=== PATIENT | female | born 1985 | race Caucasian/White ===

== ENCOUNTER 2016-05-17 17:15 | Emergency (ER) | payer OTHER ==
[2016-05-17 17:23] VITALS: BP 106/76; PULSE 94; TEMP 97.9; BMI 32.2
[2016-05-17 18:59] LABS: URINE APPEARANCE CLOUDY; URINE BILIRUBIN NEGATIVE (NEGATIVE); URINE COLOR YELLOW; URINE GLUCOSE (UA) NEGATIVE (NEGATIVE); URINE KETONE NEGATIVE (NEGATIVE); URINE NITRITE NEGATIVE (NEGATIVE); URINE PROTEIN NEGATIVE (NEGATIVE); URINE UROBILINOGEN NEGATIVE E.U./dl (0.2-1.0)
[2016-05-17 19:02] LABS: URINE BLOOD 1+ (NEGATIVE); URINE LEUK ESTERASE 3+ (NEGATIVE)
[2016-05-17 19:03] LABS: URINE BACTERIA RARE /hpf (NONE SEEN); URINE MUCUS MODERATE; URINE RBC 4 /hpf (0-3); URINE WBC 32 /hpf (3-5)
--- NOTE | 2016-05-17 19:26 | PDOC ---
History of Present Illness - General Chief Complaint: Shortness of Breath Stated Complaint: 16 WEEKS DIFFICULTY BREATHING Time Seen by Provider: 05/17/16 18:24 History Source: Patient Exam Limitations: No Limitations - History of Present Illness Initial Comments: 05/17/16 20:26 30yo Female patient presents to ED c/o intermittent trouble breathing which began 2 weeks ago, but suddenly became worse on Saturday. Patient states she saw her DISH CARRIER, who instructed her to go to ER if symptoms worsen. Patient reports she is 16 weeks . G6 Para5. Patient denies n/v/d, fever, cough, congestion, abd pain, back pain, vaginal bleeding or any other complaints at this time. Timing/Duration: reports: constant, getting worse, intermittent, week Severity: reports: mild Possible Cause: Yes: no prior episodes Modifying Factors: worse with: activity, albuterol inhaler, albuterol nebulizer , antibiotics, coughing, lying down, oxygen, rest, other Associated Symptoms: denies: denies symptoms, chest pain/soreness, cough, dizziness, earache, facial pain, fever/chills, headache, lightheadedness, muscle aches, nasal congestion, nasal drainage, shortness of breath, sinus infection, sore throat, wheezing, other Past History - Travel Traveled outside of the country in the last 30 days: No Close contact w/someone who was outside of country & ill: No - Past Medical History Allergies/Adverse Reactions: Allergies Allergy/AdvReac Type Severity Reaction Status Date / Time No Known Drug Allergies Allergy Verified 05/17/16 17:19 mayonaise Allergy Intermediate Swelling Uncoded 05/17/16 17:19 seafood Allergy Intermediate Swelling Uncoded 05/17/16 17:19 Home Medications: Ambulatory Orders Vitamins (Sjr) - 1 tab PO DAILY #0 tablet 09/28/14 Cephalexin Monohydrate [Keflex -] 500 mg PO BID #14 capsule 05/17/16 Asthma: No Cancer: No Cardiac Disorders: No Diabetes: No HTN: No Seizures: No Thyroid Disease: No Other medical history: DENIES - Immunization History Immunization Up to Date: Yes - Psycho/Social/Smoking Cessation Hx Anxiety: No Suicidal Ideation: No Smoking History: Never smoked Have you smoked in the past 12 months: No Hx Alcohol Use: No Drug/Substance Use Hx: No Substance Use Type: None Hx Substance Use Treatment: No Respiratory Specific PMHX - Complaint Specific PMHX Angina: No Bronchitis: No Pneumonia: No Pulmonary Embolus: No TB (Tuberculosis): No Review of Systems - Review of Systems Respiratory: Yes: SOB with Exertion, SOB at Rest. No: Cough, Wheezing, Productive cough, Hemoptysis Cardiac (ROS): No: Chest Pain ABD/GI: Yes: Abdominal Distended, Other (16 weeks .). No: Constipated, Diarrhea, Nausea, Vomiting All Other Systems: Reviewed and Negative *Physical Exam - Vital Signs Last Vital Signs Temp Pulse Resp BP Pulse Ox 97.9 F 94 H 18 106/76 98 05/17/16 17:17 05/17/16 17:17 05/17/16 17:17 05/17/16 17:17 05/17/16 17:17 - Physical Exam General Appearance: Yes: Nourished, Appropriately Dressed HEENT: positive: EOMI, MICHAEL, Normal ENT Inspection, Normal Voice, Symmetrical, TMs Normal, Pharynx Normal Neck: positive: Trachea midline, Supple Respiratory/Chest: positive: Lungs Clear, Normal Breath Sounds, Labored Respiration Cardiovascular: positive: Regular Rhythm, Regular Rate Gastrointestinal/Abdominal: positive: Normal Bowel Sounds, Soft, Distended, Other (16 weeks ) Musculoskeletal: positive: Normal Inspection. negative: CVA Tenderness Extremity: positive: Normal Capillary Refill, Normal Inspection, Normal Range of Motion Integumentary: positive: Normal Color, Dry, Warm Neurologic: positive: frequency checker II-XII NML intact, Fully Oriented, Alert, Normal Mood/ Affect, Normal Response ED Treatment Course - LABORATORY CBC & Chemistry Diagram: 05/17/16 13:49 05/17/16 13:49 - ADDITIONAL ORDERS Additional order review: Laboratory Results 05/17/16 18:49 Urine Color Yellow Urine Appearance Cloudy Urine pH 5.0 Ur Specific [place] 1.028 Urine Protein Negative Urine Glucose (UA) Negative Urine Ketones Negative Urine Blood 1+ H Urine Nitrite Negative Urine Bilirubin Negative Urine Urobilinogen Negative Ur Leukocyte Esterase 3+ H D Urine RBC 4 Urine WBC 32 Ur Epithelial Cells Moderate Urine Bacteria Rare Urine Mucus Moderate Progress Note - Progress Note Progress Note: PATIENT APPEARS MORE RELAXED. PATIENT STATES SHE FEELS MUCH BETTER. LABS: WBC 10.6, PRO 1. URINE +UTI. WILL TREAT UTI AND ENCOURAGE FLUID AND SOLID INTAKE. *DC/Admit/Observation/Transfer Diagnosis at time of Disposition: Dehydration UTI (urinary tract infection) Qualifiers: Urinary tract infection type: site unspecified Hematuria presence: without hematuria Qualified Code(s): N39.0 - Urinary tract infection, site not specified - Discharge Dispostion Disposition: HOME Condition at time of disposition: Good Admit: No - Prescriptions Prescriptions: Cephalexin Monohydrate [Keflex -] 500 mg PO BID #14 capsule - Patient Instructions Printed Discharge Instructions: DI for Urinary Tract Infection (UTI) Additional Instructions: FOLLOW UP WITH YOUR DISH CARRIER. CALL TO SCHEDULE APPOINTMENT. INCREASE FLUID AND SOLID INTAKE. TAKE MEDICATIONS PRESCRIBED. RETURN IF SYMPTOMS WORSEN, OR ANY CONCERNS FOR FURTHER EVALUATION. Print Language: AMERICAN
--- NOTE | 2016-05-17 19:33 | PDOC ---
[id number] 98 05/17/16 17:17 05/17/16 17:17 05/17/16 17:17 05/17/16 17:17 05/17/16 17:17 ED Treatment Course - LABORATORY CBC & Chemistry Diagram: 05/17/16 13:49 05/17/16 13:49 - ADDITIONAL ORDERS Additional order review: Laboratory Results 05/17/16 18:49 Urine Color Yellow Urine Appearance Cloudy Urine pH 5.0 Ur Specific [place] 1.028 Urine Protein Negative Urine Glucose (UA) Negative Urine Ketones Negative Urine Blood 1+ H Urine Nitrite Negative Urine Bilirubin Negative Urine Urobilinogen Negative Ur Leukocyte Esterase 3+ H D Urine RBC 4 Urine WBC 32 Ur Epithelial Cells Moderate Urine Bacteria Rare Urine Mucus Moderate Medical Decision Making - Medical Decision Making 05/17/16 19:33 agree with care from [facility] *DC/Admit/Observation/Transfer Diagnosis at time of Disposition: UTI (urinary tract infection), Dehydration - Discharge Dispostion Disposition: HOME - Prescriptions Prescriptions: Cephalexin Monohydrate [Keflex -] 500 mg PO BID #14 capsule - Patient Instructions Printed Discharge Instructions: DI for Urinary Tract Infection (UTI) Additional Instructions: FOLLOW UP WITH YOUR [facility] [facility]. CALL TO SCHEDULE APPOINTMENT. INCREASE FLUID AND SOLID INTAKE. TAKE MEDICATIONS PRESCRIBED. RETURN IF SYMPTOMS WORSEN, OR ANY CONCERNS FOR FURTHER EVALUATION. Print Language: [place]OHAW[place]
[2016-05-17 20:24] LABS: BASOPHIL 0.8 % (0-2.0); EOSINOPHIL 2.4 % (0-4.5); MCH 26.5 pg (25.7-33.7); MCHC 31.6 g/dl (32.0-36.0); MEAN CELL VOLUME 83.8 fl (80-96); MEAN PLT VOLUME 9.2 fl (7.5-11.1); NEUTROPHILS 62.1 % (42.8-82.8); PLATELET COUNT 317 K/MM3 (134-434); RDW 13.8 % (11.6-15.6); WHITE BLOOD COUNT 10.6 K/mm3 (4.0-10.0)
[2016-05-17 20:43] LABS: ALBUMIN 3.3 g/dl (3.4-5.0); ANION GAP 9 (8-16); BILIRUBIN,TOTAL 0.1 mg/dL (0.2-1.0); CALCIUM 8.6 mg/dL (8.5-10.1); CO2 22 mmol/L (21-32); CREATININE 0.6 mg/dL (0.55-1.02); GLUCOSE,RANDOM 91 mg/dL (74-106); SGPT/ALT 17 U/L (12-78); TOT PROT 7.4 g/dl (6.4-8.2)
[2016-05-17 20:44] LABS: ALK PHOS 62 U/L (45-117); SGOT/AST 15 U/L (15-37)
[2016-05-17] MEDS ORDERED: CEPHALEXIN MONOHYDRATE 500 MG CAPSULE (UD) PO ONE (21:14)
[2016-05-17] MEDS ORDERED: CEPHALEXIN MONOHYDRATE 250 MG CAPSULE (FP) ONE (21:31)
--- NOTE | 2016-05-19 10:26 | EKG ---
Test Reason : Blood Pressure : / mmHG Vent. Rate : 089 BPM Atrial Rate : 089 BPM P-R Int : 156 ms QRS Dur : 072 ms QT Int : 358 ms P-R-T Axes : 054 008 027 degrees QTc Int : 435 ms NORMAL SINUS RHYTHM NORMAL ECG NO PREVIOUS ECGS AVAILABLE Confirmed by JILLIAN CARDOZO MD ([id number]) on 05/19/2016 10:26:00 AM Referred By: Confirmed By:JILLIAN CARDOZO MD
== END 2016-05-17 21:41 | disposition home or self-care (01) ==
LOC: JER 17:15
DX: O23.32 Infections of other parts of urinary tract in pregnancy, second trimester (principal); E86.0 Dehydration; Z3A.16 16 weeks gestation of pregnancy
CPT/HCPCS: 36415; 80053; 81003; 81015; 85025; 85379; 93005; 93010; 99281-25

== ENCOUNTER 2016-11-03 08:00 | Inpatient (IN) | payer OTHER ==
[2016-11-03 08:49] VITALS: BMI 34.3
[2016-11-03] MEDS ORDERED: AMPICILLIN - 2 GM in SODIUM CHLORIDE 100 ML IVPB ONE (09:06)
--- NOTE | 2016-11-03 09:10 | HP ---
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: Alzheimer's, CVA, Dementia, Migraine, Multiple Sclerosis, Peripheral Neuropathy, Parkinson's, Seizure, Syncope, TIA, Vertigo, Other Cardiovascular: No: AFIB, Aneurysm, Aortic Insufficiency, Aortic Stenosis, CAD, CHF, Deep Vein Thrombosis, HTN, Hyperlipdemia, AL, Mitral Insufficiency, Mitral Stenosis, Murmur, Pulmonary Hypertension, Other Pulmonary: No: Asthma, Bronchitis, Cancer, COPD, O2 Dependent, Pneumonia, Previously Intubated, Pulmonary Embolus, Pulmonary Fibrosis, Sleep Apnea, Other Hepatobiliary: No: Cirrhosis, Cholelithiasis, Cholecystitis, Choledocholithiasis , Hepatitis A, Hepatitis B, Hepatitis C, Other Renal/: No: Renal Failure, Renal Inusuff, BPH, Cancer, Hematuria, Hemodialysis , Neurogenic Bladder, Renal Calculi, UTI, Other Reproductive: No: Ectopic , Endometriosis, Fibroids, PID, Polycystic Ovary Syndrome, Postmenopausal, Other ...: 8 ...Para: 5 Heme/Onc: No: Anemia, B12 Deficiency, Bleeding Disorder, Cancer, Current Chemotherapy, Current Radiation Therapy, Hemochromatosis, Hypercoaguable State, Myeloproliferative Synd, Sickle Cell Disease, Sickle Cell Trait, Thrombocytopenia, Other Infectious Disease: No: AIDS, C-Diff, Herpes Zoster, HIV, MRSA, STD's, Tuberculosis, VREF, Other Psych: No: Addictions, Anxiety, Bipolar, Depression, Panic, Psychosis, Schizophrenia, Other Musculoskeletal: No: Bursitis, Chronic low back pain, Hemiparesis, Hemiplegia, Osteoarthritis, Paraplegia, Other ENT: No: Allergic Rhinitis, Sinusitis, Other Endocrine: No: Jose Rafael's Disease, Tequila's Disease, Diabetes Insipidus, Diabetes Mellitus, Hyperparathyroidism, Hyperthyroidism, Hypothyroidism, Osteopenia, SIADH, Other Dermatology: No: Basal Cell, Cellulitis, Eczema, Melanoma, Psoriasis, Squamous Cell, Other - Smoking History Smoking history: Never smoked Have you smoked in the past 12 months: No - Alcohol/Substance Use Hx Alcohol Use: No History of Substance Use: reports: None - Social History History of Recent Travel: No Home Medications - Allergies Allergies/Adverse Reactions: Allergies Allergy/AdvReac Type Severity Reaction Status Date / Time No Known Drug Allergies Allergy Verified 09/30/16 03:49 mayonaise Allergy Intermediate Swelling Uncoded 09/30/16 03:49 seafood Allergy Intermediate Swelling Uncoded 09/30/16 03:49 - Home Medications Home Medications: Ambulatory Orders Vitamins (Sjr) - 1 tab PO DAILY #0 tablet 09/28/14 Iron 1 tab PO DAILY 11/02/16 Review of Systems - Review of Systems Constitutional: reports: No Symptoms Eyes: reports: No Symptoms HENT: reports: No Symptoms Neck: reports: No Symptoms Cardiovascular: reports: No Symptoms Respiratory: reports: No Symptoms Gastrointestinal: reports: No Symptoms, Dysphagia Genitourinary: reports: No Symptoms Musculoskeletal: reports: No Symptoms Integumentary: reports: No Symptoms Neurological: reports: No Symptoms Physical Examination Vital Signs: Vital Signs Temperature 98.2 F 11/03/16 08:39 Pulse Rate 84 11/03/16 08:39 Respiratory Rate 18 11/03/16 08:39 Blood Pressure 114/75 11/03/16 08:39 O2 Sat by Pulse Oximetry (%) Assessment/Plan as above admit labs gbs proph
[2016-11-03] MEDS ORDERED: ELECTROLYTE-148 SOLN 1,000 ML IV SCH (09:15)
[2016-11-03] MEDS ORDERED: OXYTOCIN 15 UNITS/ LR 250 ML 250 ML IVPB SCH (09:15)
--- NOTE | 2016-11-03 09:27 | PN ---
Ante-Partal Exam - Subjective Vital Signs: Vital Signs Temperature 98.1 F 11/03/16 09:00 Pulse Rate 81 11/03/16 09:00 Respiratory Rate 18 11/03/16 09:00 Blood Pressure 117/83 11/03/16 09:00 O2 Sat by Pulse Oximetry (%) - Contractions Contractions: Yes Regularity: Regular Intensity: Moderate Monitor Mode: External - Exam during Labor Heart Rate: 150 Category: I Monitor Accelerations: Present Monitor Decelerations: None Exam: Vaginal Dilatation (cm): 4 Effacement (%): 50 Amniotic Membrane Status: Ruptured Nitrazine Test: Positive Amniotic Fluid: Clear Presentation: Vertex Station: -2 - Assessment/Plan Assessment/Plan: continue care expect
[2016-11-03] MEDS ORDERED: BUTORPHANOL TARTRATE 1 MG/ML VIAL IVPUSH PRN (10:56)
[2016-11-03] MEDS ORDERED: PROMETHAZINE HCL 25 MG/1 ML VIAL IVPUSH PRN (10:57)
[2016-11-03 11:00] LABS: BASOPHIL 0.4 % (0-2.0); EOSINOPHIL 2.1 % (0-4.5); MCH 26.1 pg (25.7-33.7); MCHC 31.9 g/dl (32.0-36.0); MEAN PLT VOLUME 9.3 fl (7.5-11.1); NEUTROPHILS 60.3 % (42.8-82.8); PLATELET COUNT 254 K/MM3 (134-434); RDW 15.4 % (11.6-15.6); WHITE BLOOD COUNT 8.5 K/mm3 (4.0-10.0)
[2016-11-03 11:18] LABS: INR 0.94 (0.82-1.09); PROTHROMBIN TIME (PATIENT) 10.3 SEC (9.98-11.88)
[2016-11-03 11:21] LABS: ACTIVATED PTT 28.7 SECONDS (26.9-34.4)
[2016-11-03 11:36] LABS: ANION GAP 12 (8-16); CALCIUM 8.3 mg/dL (8.5-10.1); CO2 21 mmol/L (21-32); CREATININE 0.6 mg/dL (0.55-1.02); GLUCOSE,RANDOM 82 mg/dL (74-106)
--- NOTE | 2016-11-03 12:03 | PN ---
Ante-Partal Exam - Subjective Vital Signs: Vital Signs Temperature 98.3 F 11/03/16 11:00 Pulse Rate 74 11/03/16 11:00 Respiratory Rate 18 11/03/16 11:00 Blood Pressure 98/59 11/03/16 11:00 O2 Sat by Pulse Oximetry (%) - Contractions Contractions: Yes Regularity: Regular Intensity: Mild Monitor Mode: External - Exam during Labor Heart Rate: 150 Variability: Moderate Category: I Monitor Decelerations: None Exam: Vaginal Dilatation (cm): 4-5 Effacement (%): 50 Amniotic Membrane Status: Ruptured Nitrazine Test: Positive Presentation: Vertex Station: -2 - Assessment/Plan Assessment/Plan: as above contine care expect
[2016-11-03] MEDS ORDERED: AMPICILLIN - 1 GM in SODIUM CHLORIDE 100 ML IVPB SCH (12:15)
[2016-11-03] MEDS: AMPICILLIN - 100 ML IVPB SCH ×2 (13:00→19:17)
--- NOTE | 2016-11-03 13:42 | PN ---
Ante-Partal Exam - Subjective Vital Signs: Vital Signs Temperature 98.6 F 11/03/16 13:00 Pulse Rate 65 11/03/16 13:00 Respiratory Rate 20 11/03/16 13:00 Blood Pressure 83/54 11/03/16 13:00 O2 Sat by Pulse Oximetry (%) - Exam during Labor Heart Rate: 150 Variability: Moderate Heart Rate Location: Midline Category: I Monitor Accelerations: Present Monitor Decelerations: Variable Exam: Vaginal Dilatation (cm): 5 Effacement (%): 50 Amniotic Membrane Status: Ruptured Nitrazine Test: Positive Amniotic Fluid: Clear Meconium Staining: Light - Assessment/Plan Assessment/Plan: as above contine pitocin expect
[2016-11-03] MEDS ORDERED: METHYLERGONOVINE MALEATE 0.2 MG/1 ML AMP IM PRN (15:22)
[2016-11-03] MEDS ORDERED: BISACODYL 10 MG SUPP.RECT RC PRN (15:22)
[2016-11-03] MEDS ORDERED: WITCH HAZEL 50% (TUCKS) 40 PAD/JAR PAD TP PRN (15:22)
[2016-11-03] MEDS ORDERED: BENZOCAINE 20% 57 GM BOTTLE TP PRN (15:22)
[2016-11-03] MEDS ORDERED: BENZOCAINE 28 GM HEMORRHOIDAL OINTMENT TP PRN (15:22)
--- NOTE | 2016-11-03 15:25 | PN ---
Delivery - Delivery Type of Anesthesia: Local Episiotomy/Laceration: None EBL (cc): 300 Delivery, Single - Feeding Plan Initial Plan: Elected not to breastfeed exclusively throughout hospitalization
[2016-11-03] MEDS ORDERED: OXYTOCIN 20 UNITS in 0.9% NS 1,000 ML IV SCH (15:30)
[2016-11-03] MEDS: IBUPROFEN 600 MG TABLET (FP) PO PRN ×2 (17:47→22:24)
[2016-11-03] MEDS: ACETAMINOPHEN 325 MG TABLET (FP) PO PRN ×2 (17:48→22:21)
[2016-11-03] MEDS: oxyCODONE HCL 5 MG TABLET PO PRN (21:16)
[2016-11-04] MEDS: ACETAMINOPHEN 325 MG TABLET (FP) PO PRN ×3 (04:29→20:22)
[2016-11-04] MEDS: oxyCODONE HCL 5 MG TABLET PO PRN ×4 (04:30→20:22)
[2016-11-04] MEDS: IBUPROFEN 600 MG TABLET (FP) PO PRN (08:09)
[2016-11-04 08:19] LABS: BASOPHIL 0.4 % (0-2.0); EOSINOPHIL 1.2 % (0-4.5); MCH 25.8 pg (25.7-33.7); MCHC 31.2 g/dl (32.0-36.0); MEAN CELL VOLUME 82.6 fl (80-96); MEAN PLT VOLUME 9.2 fl (7.5-11.1); NEUTROPHILS 57.6 % (42.8-82.8); PLATELET COUNT 201 K/MM3 (134-434); RDW 15.6 % (11.6-15.6); WHITE BLOOD COUNT 11.2 K/mm3 (4.0-10.0)
[2016-11-04] MEDS ORDERED: DIPHTH,PERTUSS(ACELL),TET 0.5 ML DISP.SYRIN IM ONE (17:00)
[2016-11-04] MEDS ORDERED: SENNOSIDES/DOCUSATE COMBO (SENNA PLUS) TABLET (UD) PO PRN (22:00)
--- NOTE | 2016-11-04 22:52 | PN ---
Post Progress Note Post Day: 1 Type of Delivery: Vital Signs: Vital Signs Temperature 98.1 F 11/04/16 21:24 Pulse Rate 74 11/04/16 21:24 Respiratory Rate 18 11/04/16 21:24 Blood Pressure 105/72 11/04/16 21:24 O2 Sat by Pulse Oximetry (%) Breast Exam: Yes: Soft Uterus: Yes: Fundus Firm Abdomen/GI: Yes: Abdomen soft Lochia: Yes: Rubra Lochia, amount: Small Extremities: Yes: Calves non-tender Perineum: Yes: Intact Activity: Ambulating - Labs Labs: CBC WBC 11.2 K/mm3 (4.0-10.0) H D 11/04/16 07:50 RBC 3.56 M/mm3 (3.60-5.2) L 11/04/16 07:50 Hgb 9.2 GM/dL (10.7-15.3) L D 11/04/16 07:50 Hct 29.4 % (32.4-45.2) L 11/04/16 07:50 MCV 82.6 fl (80-96) 11/04/16 07:50 MCHC 31.2 g/dl (32.0-36.0) L 11/04/16 07:50 RDW 15.6 % (11.6-15.6) 11/04/16 07:50 Plt Count 201 K/MM3 (134-434) D 11/04/16 07:50 MPV 9.2 fl (7.5-11.1) 11/04/16 07:50 Neutrophils % 57.6 % (42.8-82.8) 11/04/16 07:50 Lymphocytes % 36.0 % (8-40) 11/04/16 07:50 Monocytes % 4.8 % (3.8-10.2) 11/04/16 07:50 Eosinophils % 1.2 % (0-4.5) 11/04/16 07:50 Basophils % 0.4 % (0-2.0) 11/04/16 07:50 Assessment/Plan as above oob reg diet continue care
[2016-11-05] MEDS: oxyCODONE HCL 5 MG TABLET PO PRN ×2 (03:06→10:26)
[2016-11-05] MEDS: ACETAMINOPHEN 325 MG TABLET (FP) PO PRN ×2 (03:06→10:25)
[2016-11-05 10:37] VITALS: BP 116/67; PULSE 86; TEMP 98.6
== END 2016-11-05 12:30 | disposition home or self-care (01) | DRG 560 ==
LOC: JLDR 08:00 → J3W 17:05
PROVIDERS: ADMIT Obstetrics & Gynecology; ATTEND Obstetrics & Gynecology
PROC: 10E0XZZ Delivery of Products of Conception, External Approach (ICD-10-PCS; principal; 2016-11-03)
DX: O80 Encounter for full-term uncomplicated delivery (principal); Z3A.40 40 weeks gestation of pregnancy; Z37.0 Single live birth; Z22.330 Carrier of Group B streptococcus
CPT/HCPCS: 36415; 59409; 80048; 85025; 85610; 85730; 86593; 86850; 86900; 86901; 90715

== ENCOUNTER 2018-09-24 14:32 | Observation (INO) | payer OTHER | END 2018-09-25 21:10 | disposition home or self-care (01) | LOC: JER 14:32 → JERBED 21:32 → J5S 22:59 ==

== ENCOUNTER 2018-11-11 05:32 | Inpatient (IN) | payer SELFPAY ==
[2018-11-11] MEDS ORDERED: ALBUTEROL SO4 2.5/IPRATROPIUM 0.5 INH SOL 3 ML VIAL.NEB. NEB ONE ×2 (06:12→06:19)
[2018-11-11 06:30] LABS: HEMATOCRIT 36.6 % (32.4-45.2); HEMOGLOBIN 11.9 GM/dL (10.7-15.3); MCH 27.7 pg (25.7-33.7); MCHC 32.4 g/dl (32.0-36.0); MEAN CELL VOLUME 85.5 fl (80-96); MEAN PLT VOLUME 9.3 fl (7.5-11.1); PLATELET COUNT 315 K/MM3 (134-434); RBC 4.29 M/mm3 (3.60-5.2); RDW 13.9 % (11.6-15.6); WHITE BLOOD COUNT 9.5 K/mm3 (4.0-10.0)
[2018-11-11] MEDS ORDERED: methylPREDNISolone NA SUCC 125 MG/2 ML VIAL IVPUSH ONE (06:34)
--- NOTE | 2018-11-11 06:34 | PDOC ---
History of Present Illness - General Chief Complaint: Shortness of Breath Stated Complaint: S.O.B. 28 WEEKS Time Seen by Provider: 11/11/18 06:31 History Source: Patient Exam Limitations: No Limitations - History of Present Illness Initial Comments: 11/11/18 06:31 32F at 6 months who presents to the ER with shortness of breath. The patient states that she developed shortness of breath yesterday and this continued throughout the night until her presentation. She admits to coughing so hard that she had vomited and admits to reproducible L chest pain. She denies other CP, fever, chills, nausea, palpitations, lightheadedness, and hx of asthma. Past History - Past Medical History Allergies/Adverse Reactions: Allergies Allergy/AdvReac Type Severity Reaction Status Date / Time No Known Drug Allergies Allergy Verified 11/11/18 05:46 mayonaise Allergy Intermediate Swelling Uncoded 11/11/18 05:46 seafood Allergy Intermediate Swelling Uncoded 11/11/18 05:46 Home Medications: Ambulatory Orders Ferrous Sulfate [Iron] 325 mg PO DAILY 09/24/18 Asthma: No Cancer: No Cardiac Disorders: No COPD: No Diabetes: No HTN: No Seizures: No Thyroid Disease: No - Immunization History Immunization Up to Date: Yes - Suicide/Smoking/Psychosocial Hx Smoking History: Never smoked Have you smoked in the past 12 months: No Hx Alcohol Use: No Drug/Substance Use Hx: No Substance Use Type: None Hx Substance Use Treatment: No Review of Systems - Review of Systems Able to Perform ROS?: Yes Comments:: 11/11/18 06:35 GENERAL/CONSTITUTIONAL: No fever or chills. No weakness. HEAD, EYES, EARS, NOSE AND THROAT: No change in vision. No ear pain or discharge. No sore throat. CARDIOVASCULAR: No active chest pain, palpitations, or lightheadedness. RESPIRATORY: + for SOB and cough. No wheezing or hemoptysis. GASTROINTESTINAL: No abdominal pain, nausea, diarrhea, or constipation. GENITOURINARY: No dysuria, frequency, hematuria, or change in urination. MUSCULOSKELETAL: No joint or muscle swelling or pain. No neck or back pain. SKIN: No rash or lesions. NEUROLOGIC: No headache, numbness, tingling, focal weakness, loss of consciousness, or change in strength/sensation. Is the patient limited Polish proficient: No *Physical Exam - Vital Signs Last Vital Signs Temp Pulse Resp BP Pulse Ox 98.3 F 103 H 18 112/57 L 99 11/11/18 05:40 11/11/18 05:40 11/11/18 05:40 11/11/18 05:40 11/11/18 05:40 - Physical Exam Comments: 11/11/18 06:36 GENERAL: Well developed, well nourished. Awake and alert. No acute distress. HEENT: Normocephalic, atraumatic. Hearing grossly normal. Moist mucous membranes. PERRLA, EOMI. No conjunctival pallor. Sclera are non-icteric. NECK: Supple. Full ROM. No JVD. CARDIOVASCULAR: Regular rate and rhythm. No murmurs, rubs, or gallops. PULMONARY: Decreased aeration in b/l lungs; pt speaking in full sentences. ABDOMINAL: Soft. Non-tender. Non-distended. No rebound or guarding. GENITOURINARY: No CVA tenderness bilaterally. MUSCULOSKELETAL: Normal range of motion at all joints. No bony deformities or tenderness. EXTREMITIES: No cyanosis. No clubbing. No edema. No calf tenderness or swelling. SKIN: Warm and dry. Normal capillary refill. No rashes. No jaundice. NEUROLOGICAL: Alert, awake, appropriate. Cranial nerves 2-12 grossly intact. Normal speech. Gait is normal without ataxia. PSYCHIATRIC: Cooperative. Good eye contact. Appropriate mood and affect. ED Treatment Course - LABORATORY CBC & Chemistry Diagram: 11/11/18 06:20 11/11/18 06:20 - Medications Given in the ED: ED Medications Discontinued Medications Generic Name Dose Route Start Last Admin Trade Name Freq PRN Reason Stop Dose Admin Albuterol/Ipratropium 2 amp 11/11/18 06:19 11/11/18 06:20 Duoneb - NEB 11/11/18 06:20 2 amp ONCE ONE Administration Medical Decision Making - Medical Decision Making 11/11/18 06:37 32F at 6 months presents with shortness of breath. Pt mentioned after history that she had not felt the baby move in 2 days. L&D notified and came to bedside confirming FHT. Due to decreased aeration, will give 2 duonebs and steroids and reassess. PE on ddx but less likely as pt has PE findings of decreased aeration and mild wheezing. Pending labs and imaging. 11/11/18 06:59 Pt signed out to Dr. Savage for further evaluation. *DC/Admit/Observation/Transfer - Referrals Referrals: Yoly Dixon MD [Primary Care Provider] - - Patient Instructions - Post Discharge Activity
[2018-11-11] MEDS ORDERED: methylPREDNISolone NA SUCC 125 MG/2 ML VIAL ONE (06:35)
--- NOTE | 2018-11-11 06:37 | PDOC ---
Attending Attestation - Resident Resident Name: GeorgeeverosendoDamion - ED Attending Attestation I have performed the following: I have examined & evaluated the patient, The case was reviewed & discussed with the resident, I agree w/resident's findings & plan - HPI HPI: 11/11/18 06:33 32-year-old shortness of breath and wheezing. Pt denies cp or fever - Physicial Exam PE: 11/11/18 06:34 GENERAL: Awake, in no acute distress HEAD: No signs of trauma EYES: ENT:clear without exudates. Moist mucosa NECK: Normal ROM, LUNGS:. b/l exp wheezing , dim air entry b/l HEART: Regular rate and rhythm, ABDOMEN: Soft, nondistended CHEST WALL: BACK: No midline tenderness. EXTREMITIES:. No erythema, or tenderness NEUROLOGICAL: Alert, SKIN: Warm, Dry - Medical Decision Making 11/11/18 06:35 32-year-old gravid female with shortness of breath and wheezing EKG, chest x-ray and labs have been ordered Final Medrol 125 mg as well as duo nebs 2 Call placed to labor and delivery on arrival is patient is 28 weeks and has not felt movement for 2 days, heart rate was confirmed at bedside If DC'd from the emergency department plan for a full labor and delivery evaluation
[2018-11-11 07:01] LABS: ALBUMIN 2.8 g/dl (3.4-5.0); ALK PHOS 65 U/L (45-117); ANION GAP 10 MMOL/L (8-16); BILIRUBIN,TOTAL 0.2 mg/dL (0.2-1); BLOOD UREA NITROGEN 6.8 mg/dL (7-18); CALCIUM 8.2 mg/dL (8.5-10.1); CHLORIDE 110 mmol/L (98-107); CO2 20 mmol/L (21-32); CREATININE 0.5 mg/dL (0.55-1.3); GLUCOSE,RANDOM 77 mg/dL (74-106); N-TERMINAL BNP 21.4 pg/ml (5-125); POTASSIUM 3.8 mmol/L (3.5-5.1); SGOT/AST 18 U/L (15-37); SGPT/ALT 26 U/L (13-61); SODIUM 140 mmol/L (136-145); TOT PROT 6.9 g/dl (6.4-8.2)
--- NOTE | 2018-11-11 07:29 | PDOC ---
*Physical Exam - Vital Signs Last Vital Signs Temp Pulse Resp BP Pulse Ox 98.3 F 103 H 18 112/57 L 99 11/11/18 05:40 11/11/18 05:40 11/11/18 05:40 11/11/18 05:40 11/11/18 05:40 - Physical Exam Comments: 11/11/18 07:27 General: awake, alert, SpO2 97% on 2L O2 NC Respiratory: B/L expiratory wheezing, diminished air entry B/L CV: S1, S2, Tachycardic, RRR Abdomen: gravid uterus - fundal height below subxiphoid ED Treatment Course - LABORATORY CBC & Chemistry Diagram: 11/11/18 06:20 11/11/18 06:20 - ADDITIONAL ORDERS Additional order review: Laboratory Results 11/11/18 06:20 Sodium 140 Potassium 3.8 Chloride 110 H Carbon Dioxide 20 L Anion Gap 10 BUN 6.8 L Creatinine 0.5 L Est GFR (CKD-EPI)AfAm 148.42 Est GFR (CKD-EPI)NonAf 128.06 Random Glucose 77 Calcium 8.2 L Total Bilirubin 0.2 AST 18 ALT 26 Alkaline Phosphatase 65 Creatine Kinase 47 Troponin I < 0.02 B-Natriuretic Peptide 21.4 Total Protein 6.9 Albumin 2.8 L 11/11/18 06:20 RBC 4.29 MCV 85.5 MCHC 32.4 RDW 13.9 MPV 9.3 - Medications Given in the ED: ED Medications Discontinued Medications Generic Name Dose Route Start Last Admin Trade Name Freq PRN Reason Stop Dose Admin Albuterol/Ipratropium 2 amp 11/11/18 06:19 11/11/18 06:20 Duoneb - NEB 11/11/18 06:20 2 amp ONCE ONE Administration Methylprednisolone Sodium Succinate 125 mg 11/11/18 06:34 11/11/18 06:41 Solu-Medrol - IVPUSH 11/11/18 06:35 125 mg ONCE ONE Administration Medical Decision Making - Medical Decision Making 11/11/18 07:45 Patient signed out at bedside @ [address] Jack (Resident) and Dr. Burton ( Attending) Reassessed @ bedside SpO2 98& on 2L NC, non-labored breathing Mildly tachycardic @ HR 104 Mild bibasilar wheezes Patient explained risks/benefits of CXR, consents to CXR 11/11/18 08:54 CXR shows no infiltrate - less likely PNA Patient remains SpO2 92% on RA, speaking full sentences, non-labored respirations, continues to c/o dyspnea 11/11/18 09:19 Patient consents to CTA 11/11/18 13:43 CTA negative for PE Case d/w Dr. Ceja (Resident) Hospitalist 11/11/18 18:35 @1755 Discussed case w/Dr. Barraza (OB-Statistician Applied) Patient does not require admission for OB-Statistician Applied Patient reassessed @ bedside. States she became short of breath and dizzy while ambulating to the bathroom. Repeat VS: SpO2 96% (on 3L), HR 100's - patient not safe for discharge home. Order placed for Telemetry Admission 11/11/18 19:38 Case d/w Dr. Fulton, will evaluate patient @ bedside. 11/11/18 19:58 Case d/w Dr. Fulton- accepts for admission. Requests order for Heart Monitoring. *DC/Admit/Observation/Transfer Diagnosis at time of Disposition: Shortness of breath - Discharge Dispostion Condition at time of disposition: Fair Decision to Admit order: Yes - Referrals - Patient Instructions - Post Discharge Activity
[2018-11-11] MEDS ORDERED: SODIUM CHLORIDE 0.9% 500 ML INFUS.BAG IV ONE (11:26)
--- NOTE | 2018-11-11 13:53 | EKG ---
Test Reason : Blood Pressure : / mmHG Vent. Rate : 089 BPM Atrial Rate : 089 BPM P-R Int : 154 ms QRS Dur : 072 ms QT Int : 364 ms P-R-T Axes : 067 006 018 degrees QTc Int : 442 ms NORMAL SINUS RHYTHM NORMAL ECG WHEN COMPARED WITH ECG OF 24-SEP-2018 15:24, NO SIGNIFICANT CHANGE WAS FOUND Confirmed by MD ADARSH, RADHA ([id number]) on 11/11/2018 1:52:39 PM Referred By: Confirmed By:RADHA ALTAMIRNAO MD
--- NOTE | 2018-11-11 14:45 | CONSULT ---
Consultation: REQUESTING PROVIDER: CONSULT REQUEST: We have been asked to medically evaluate this patient for hypoxia. HISTORY OF PRESENT ILLNESS: Patient is a 32 year old ([id number]), at 24 weeks AOG, with no significant past medical history, presented to the ED due to sudden onset shortness of breath that started upon waking up this morning. Patient reports cough, productive of white sputum in the last 2 weeks, but denies any fever, chills, rhinorrhea, sore throat, headache, SOB. No medications were taken. This morning, on waking up, patient experienced difficulty breathing and felt "out of breath", and decided to go to the ED. At the ED, patient was given solu-medrol and duonebs which provided mild relief. Patient continues to report SOB. CTA was done which showed no central pulmonary artery emboli, no infiltrates, no pneumothorax. EKG showed NSR with no ST-T wave abnormalities. Of note, patient's last 2 pregnancies ended in miscarriages, with the first being an ectopic and a 2nd trimester miscarriage. She also reported the same father for these last 3 pregnancies, but different father for her first 6 children. Allergies: NKDA PMHx: noncontributory PSHx: no previous surgeries FHx: Father -DM, Mother - HTN OB Hx: , last 2 pregnancies ended in miscarriages. SHx: Denies smoking, EtOH and illicit drug use REVIEW OF SYSTEMS: CONSTITUTIONAL: Absent: fever, chills, diaphoresis, generalized weakness, malaise, loss of appetite, weight change HEENT: Absent: rhinorrhea, nasal congestion, throat pain, throat swelling, difficulty swallowing, mouth swelling, ear pain, eye pain, visual changes CARDIOVASCULAR: Absent: chest pain, syncope, palpitations, irregular heart rate, lightheadedness , peripheral edema RESPIRATORY: cough, shortness of breath Absent:dyspnea with exertion, orthopnea, wheezing, stridor, hemoptysis GASTROINTESTINAL: Absent: abdominal pain, abdominal distension, nausea, vomiting, diarrhea, constipation, melena, hematochezia GENITOURINARY: Absent: dysuria, frequency, urgency, hesitancy, hematuria, flank pain, genital pain MUSCULOSKELETAL: Absent: myalgia, arthralgia, joint swelling, back pain, neck pain SKIN: Absent: rash, itching, pallor HEMATOLOGIC/IMMUNOLOGIC: Absent: easy bleeding, easy bruising, lymphadenopathy, frequent infections ENDOCRINE: Absent: unexplained weight gain, unexplained weight loss, heat intolerance, cold intolerance NEUROLOGIC: Absent: headache, focal weakness or paresthesias, dizziness, unsteady gait, seizure, mental status changes, bladder or bowel incontinence PSYCHIATRIC: Absent: anxiety, depression, suicidal or homicidal ideation, hallucinations. PHYSICAL EXAMINATION Vital Signs - 24 hr 11/11/18 11/11/18 11/11/18 05:40 09:08 09:09 Temperature 98.3 F Pulse Rate 103 H Pulse Rate [ 98 H Apical] Respiratory 18 22 H 22 H Rate Blood Pressure 112/57 L Blood Pressure 97/58 L [Right Arm] O2 Sat by Pulse 99 93 L 96 Oximetry (%) 11/11/18 11:57 Temperature Pulse Rate Pulse Rate [ 104 H Apical] Respiratory 28 H Rate Blood Pressure Blood Pressure 92/60 [Right Arm] O2 Sat by Pulse 99 Oximetry (%) GENERAL: Awake, alert, and fully oriented, maintains SpO2 >90% on room air HEAD: Normal with no signs of trauma. EYES: PERRLA, EOMI, sclera anicteric, conjunctiva clear. EARS, NOSE, THROAT: Ears normal, nares patent, oropharynx clear without exudates. Moist mucous membranes. NECK: Normal range of motion, supple. LUNGS: Breath sounds equal, clear to auscultation bilaterally. HEART: Regular rate and rhythm, normal S1 and S2 without murmur, rub or gallop. ABDOMEN: Soft, nontender, not distended, normoactive bowel sounds. MUSCULOSKELETAL: Normal range of motion at all joints. No bony deformities or tenderness. No CVA tenderness. UPPER EXTREMITIES: 2+ pulses, warm, well-perfused. No peripheral edema. LOWER EXTREMITIES: 2+ pulses, warm, well-perfused. No peripheral edema. NEUROLOGICAL: Cranial nerves II-XII intact. Normal speech. Normal gait. PSYCHIATRIC: Cooperative. Good eye contact. Appropriate mood and affect. SKIN: Warm, dry, normal turgor, no rashes or lesions noted. Laboratory Results - last 24 hr 11/11/18 11/11/18 06:20 06:20 WBC 9.5 RBC 4.29 Hgb 11.9 Hct 36.6 MCV 85.5 MCH 27.7 MCHC 32.4 RDW 13.9 Plt Count 315 D MPV 9.3 Sodium 140 Potassium 3.8 Chloride 110 H Carbon Dioxide 20 L Anion Gap 10 BUN 6.8 L Creatinine 0.5 L Est GFR (CKD-EPI)AfAm 148.42 Est GFR (CKD-EPI)NonAf 128.06 Random Glucose 77 Calcium 8.2 L Total Bilirubin 0.2 AST 18 ALT 26 Alkaline Phosphatase 65 Creatine Kinase 47 Troponin I < 0.02 B-Natriuretic Peptide 21.4 Total Protein 6.9 Albumin 2.8 L ASSESSMENT/PLAN: Patient is a 32 year old ([id number]), at 24 weeks AOG, with no significant past medical history, presented to the ED due to sudden onset shortness of breath that started upon waking up this morning. #Acute bronchitis -CTA showed no pulmonary emboli, pneumothorax or infiltrates -continue supplemental oxygen to maintain SpO2 >90% - may attribute to SOB -OB on board # -further management as per OB -continue vitamins and iron supplements #FEN -Not on any standing fluids -electrolytes wnl, routine bmp monitoring -Regular diet as tolerated. #Prophylaxis -SCDs #Disposition -full code Dispo: We will continue to follow the patient. Thank you for this consultative opportunity. Visit type - Emergency Visit Emergency Visit: Yes ED Registration Date: 11/11/18 Care time: The patient presented to the Emergency Department on the above date and was hospitalized for further evaluation of their emergent condition. - New Patient This patient is new to me today: Yes Date on this admission: 11/12/18 - Critical Care Critical Care patient: No
[2018-11-11] MEDS ORDERED: ONDANSETRON 4 MG/2 ML VIAL IVPUSH ONE (16:55)
[2018-11-11] MEDS ORDERED: ONDANSETRON 4 MG/2 ML VIAL ONE (17:11)
--- NOTE | 2018-11-11 20:17 | PN ---
Teaching Attending Note Name of Resident: Arabelal Ramos ATTENDING PHYSICIAN STATEMENT I saw and evaluated the patient. I reviewed the resident's note and discussed the case with the resident. I agree with the resident's findings and plan as documented. SUBJECTIVE: Feels better, less short of breath. No chest pain/palpitations. Reports 2 week history of intermittent cough productive of greenish sputum. No hemoptysis. No fever/chills. OBJECTIVE: Afebrile, Hemodynamically Stable. Last Vital Signs Temp Pulse Resp BP Pulse Ox 97.9 F 99 H 18 106/62 99 11/11/18 17:29 11/11/18 17:29 11/11/18 17:29 11/11/18 17:29 11/11/18 17:29 HEENT - Atraumatic, Normocephalic. Heart - S1, S2, RRR, occassional tachy to 104 Lungs - clear to auscultation Abdomen - gravid. Non-tender. Extremities - no LE edema, no calf tenderness. Laboratory Results - last 24 hr 11/11/18 11/11/18 06:20 06:20 WBC 9.5 RBC 4.29 Hgb 11.9 Hct 36.6 MCV 85.5 MCH 27.7 MCHC 32.4 RDW 13.9 Plt Count 315 D MPV 9.3 Sodium 140 Potassium 3.8 Chloride 110 H Carbon Dioxide 20 L Anion Gap 10 BUN 6.8 L Creatinine 0.5 L Est GFR (CKD-EPI)AfAm 148.42 Est GFR (CKD-EPI)NonAf 128.06 Random Glucose 77 Calcium 8.2 L Total Bilirubin 0.2 AST 18 ALT 26 Alkaline Phosphatase 65 Creatine Kinase 47 Troponin I < 0.02 B-Natriuretic Peptide 21.4 Total Protein 6.9 Albumin 2.8 L Home Medications Medication Instructions Recorded Ferrous Sulfate [Iron] 325 mg PO DAILY 09/24/18 Vits96/Iron Fum/Folic 1 tab PO DAILY 11/11/18 [ Tablet] ASSESSMENT AND PLAN: 32 year old , at 24 weeks of gestation, with no significant past medical history, presented to the ED due to sudden onset shortness of breath that started upon waking up this morning. 1. Dyspnea, Possible Acute Bronchitis, likely Viral, no signs of sepsis No tachycardia or hypoxia on my exam. CTA Chest - no pulmonary emboli, no pneumonia, no congestion/fluid No leukocytosis. If fever or worsening symptoms, can consider Antibiotic therapy if cleared by Obstetrics. No clear indication for admission at this point. Patient is well beyond 20 weeks of gestation and if admission is recommended by Obstetrics, recommend admission to floor equipped with monitoring under Obstetrics. Will be happy to follow patient in consultation. 2. , possible cause for HR in upper 90s/low 100s, physiologically normal for OB eval necessary - discussed with OB attending personally. Continue Vitamins and Ferrous Sulfate.
--- NOTE | 2018-11-11 21:24 | PN ---
Teaching Attending Note Name of Resident: Odilia Paige ATTENDING PHYSICIAN STATEMENT I saw and evaluated the patient. I reviewed the resident's note and discussed the case with the resident. I agree with the resident's findings and plan as documented. SUBJECTIVE: Seen and examined; please refer to resident note for further historical information. She presents to the ER with 1 week cough, no sick contacts, and cough for 1 week. She had worsening symptoms with contrast and had some percieved issues walking after contrast that have completely resolved. Medicine initially consulted; I am told OB cleared patient. Medicine declined admission. Reviewed consult; she has no wheezes and is not hypoxic on RA (low 90s is acceptable and she may be hypoventillating with and is not SOB , etc). No copious secretions, no weezing on exam. HR is less than 100 consistently even with ambulation. She is ambulatory on her own around the unit without difficulty, no changes in gait. There is no pneumonia on CT or CXR and there is no PE. I was told to admit the patient for hypoxia, tachycardia, pneumonia, and inability to ambulate. I informed the ER that she was ambulatory with no hypoxia or tachycardia and that her CT and CXR were negative and BNP is negative; the patient had already been brought to the floor. She has been accepted to [facility] and [facility] will be consulted. 10 sys ROS done and negative aside from HPI PMH, PSH, FH, SH reviewed Home Medications Medication Instructions Recorded Ferrous Sulfate [Iron] 325 mg PO DAILY 09/24/18 Vits96/Iron Fum/Folic 1 tab PO DAILY 11/11/18 [ Tablet] OBJECTIVE: VS, labs, imaging reviewed NAD, AAO, resting comfortably in bed NC AT EOMI PERRLA RRR s1/2 no mgr Lungs CTAB, w/ sym exp Obese, NT ND +BS CN2-12 wnl, no fnd. Ambulating around the unit without changes in gait. Normal mood, appropriate behavior. ASSESSMENT AND PLAN: Patient presents with cough; had percieved ambulatory difficulties post contrast. I am told OB cleared patient. Not hypoxic, not tachycardic, no history asthma/COPD, BNP negative, ambulatory without any gait disturbances or neuro issues. No PMH and takes no Rx medications. Additionally high normal HR can be seen in which is what she has. Acute bronchitis -Incentive spirometry; no need for O2 if >92%. If desats check ABG and PRN O2, but other workup completely negative and I see no underlying signs of cardiopulmonary issues. Will discuss abx with OB in the AM as she is already covered for 24 hours and we want to not cause harm -Deferred in its entirety to OB. Full Code
--- NOTE | 2018-11-11 22:51 | CONSULT ---
Consult - text type - Consultation Consultation Note: 32yo @ 25wks who presented to the ER with shortness of breath. Her is complicated by late entry to care, grand multiparity and obesity. No VB/LOF/Ctx. Seen and thoroughly evaluated by staff in the ER. No evidence of PNA or PE on imaging. Her lab work shows no anemia, and only an elevated D-Dimer which is expected in . Per medicine consult, concern was for bronchitis. A course of antibiotics and bronchodilators were recommended. She had a NST which in the ER which was reactive for her gestational age. She is without Ob complaints. Hospitalist impression was that the patient was clear for discharge, and we agreed that she could follow up in the OBGYN office tomorrow for continued care. ED team felt that her tachypnea was not improved enough and pressed for admission. From an OB standpoint, she will need to continue her OB vitamins and require once daily NST and as needed for contractions/VB. I will see her in the morning/afternoon tomorrow, and anticipate that she will be ready for discharge. Isidro Barraza MD OBGYN
--- NOTE | 2018-11-12 02:26 | HP ---
CHIEF COMPLAINT: shortness of breath/ productive cough and dizziness PCP: HISTORY OF PRESENT ILLNESS: 32 y/o female currently 6 and a half months presented to the ED for complaints of productive cough ( x1 week with dennis/green sputum) and patient was having some nausea this AM- this is her ninth ; none of her other pregnancies had any complications. she denies any sick contacts or any recent travel. she did not take any medications for this . she had no medical problems. ER course was notable for: (1) CTA was done which showed no central pulmonary artery emboli, no infiltrates , no pneumothorax. EKG showed NSR with no ST-T wave abnormalities. (2)given solu-medrol and duonebs which provided mild relief (3) Recent Travel: denies PAST MEDICAL HISTORY: none PAST SURGICAL HISTORY: none Social History: Smoking:denies Alcohol:denies Drugs: denies Family History:Father -DM, Mother - HTN Allergies No Known Drug Allergies Allergy (Verified 11/11/18 05:46) mayonaise Allergy (Intermediate, Uncoded 11/11/18 05:46) Swelling seafood Allergy (Intermediate, Uncoded 11/11/18 05:46) Swelling HOME MEDICATIONS: Home Medications Medication Instructions Recorded Ferrous Sulfate [Iron] 325 mg PO DAILY 09/24/18 Vits96/Iron Fum/Folic 1 tab PO DAILY 11/11/18 [ Tablet] REVIEW OF SYSTEMS CONSTITUTIONAL: Absent: fever, chills, diaphoresis, generalized weakness, malaise, loss of appetite, weight change HEENT: Absent: rhinorrhea, nasal congestion, throat pain, throat swelling, difficulty swallowing, mouth swelling, ear pain, eye pain, visual changes CARDIOVASCULAR: Present: lightheadedness Absent: chest pain, syncope, palpitations, irregular heart rate, lightheadedness, peripheral edema RESPIRATORY: Present: cough, shortness of breath Absent: dyspnea with exertion, orthopnea, wheezing, stridor, hemoptysis GASTROINTESTINAL: Absent: abdominal pain, abdominal distension, nausea, vomiting, diarrhea, constipation, melena, hematochezia GENITOURINARY: Absent: dysuria, frequency, urgency, hesitancy, hematuria, flank pain, genital pain MUSCULOSKELETAL: Absent: myalgia, arthralgia, joint swelling, back pain, neck pain SKIN: Absent: rash, itching, pallor HEMATOLOGIC/IMMUNOLOGIC: Absent: easy bleeding, easy bruising, lymphadenopathy, frequent infections ENDOCRINE: Absent: unexplained weight gain, unexplained weight loss, heat intolerance, cold intolerance NEUROLOGIC: Absent: headache, focal weakness or paresthesias, dizziness, unsteady gait, seizure, mental status changes, bladder or bowel incontinence PSYCHIATRIC: Absent: anxiety, depression, suicidal or homicidal ideation, hallucinations. PHYSICAL EXAMINATION Vital Signs - 24 hr 11/11/18 11/11/18 11/11/18 05:40 09:08 09:09 Temperature 98.3 F Pulse Rate 103 H Pulse Rate [ 98 H Apical] Respiratory 18 22 H 22 H Rate Blood Pressure 112/57 L Blood Pressure 97/58 L [Right Arm] O2 Sat by Pulse 99 93 L 96 Oximetry (%) 11/11/18 11/11/18 11/11/18 11:57 15:41 16:40 Temperature Pulse Rate Pulse Rate [ 104 H 98 H Apical] Respiratory 28 H 24 H Rate Blood Pressure Blood Pressure 92/60 108/74 [Right Arm] O2 Sat by Pulse 99 24 L 99 Oximetry (%) 11/11/18 11/12/18 17:29 02:11 Temperature 97.9 F 97.9 F Pulse Rate 95 H Pulse Rate [ 99 H Apical] Respiratory 18 18 Rate Blood Pressure 91/50 L Blood Pressure 88/66 L [Right Arm] O2 Sat by Pulse 99 Oximetry (%) GENERAL: Awake, alert, and fully oriented, in no acute distress. EYES:PEERLA; EOMI; no scleral icterus. NECK: no JVD; no lymphadenopathy LUNGS: CTA B/L; no rales, rhonchi or wheezing . HEART: Regular rate and rhythm, normal S1 and S2 without murmur, rub or gallop. ABDOMEN: gravid; soft; nontender/nondistended MUSCULOSKELETAL: Normal range of motion at all joints. No bony deformities or tenderness. No CVA tenderness. EXTREMITIES: warm; well-perfused no clubbing/cyanosis or edema NEUROLOGICAL: Cranial nerves II-XII intact. Normal speech. Normal gait. PSYCHIATRIC: Cooperative. Good eye contact. Appropriate mood and affect. SKIN: Warm, dry, normal turgor, no rashes or lesions noted, normal capillary refill. Laboratory Results - last 24 hr 11/11/18 11/11/18 06:20 06:20 WBC 9.5 RBC 4.29 Hgb 11.9 Hct 36.6 MCV 85.5 MCH 27.7 MCHC 32.4 RDW 13.9 Plt Count 315 D MPV 9.3 Sodium 140 Potassium 3.8 Chloride 110 H Carbon Dioxide 20 L Anion Gap 10 BUN 6.8 L Creatinine 0.5 L Est GFR (CKD-EPI)AfAm 148.42 Est GFR (CKD-EPI)NonAf 128.06 Random Glucose 77 Calcium 8.2 L Total Bilirubin 0.2 AST 18 ALT 26 Alkaline Phosphatase 65 Creatine Kinase 47 Troponin I < 0.02 B-Natriuretic Peptide 21.4 Total Protein 6.9 Albumin 2.8 L ASSESSMENT/PLAN: 32 y/o female with no PMH presented to the ED with complaints of shortness of breath with productive cough who symptoms have now improved #Acute Bronchitis patient currently saturating well off NC; will give patient incentive spirometer -if patient begins to desaturate wiill do ABG and PRN supplemental O2 -monitor o2 sat; maintain above 90 # patient is being follow by OB c/w vitamins and ferrous sulfate Problem List - Problem (1) Shortness of breath Code(s): R06.02 - SHORTNESS OF BREATH (2) Code(s): Z34.90 - ENCNTR FOR SUPRVSN OF NORMAL , UNSP, UNSP TRIMESTER Qualifiers: Weeks of gestation: 42 weeks Qualified Code(s): Z3A.42 - 42 weeks gestation of Visit type - Emergency Visit Emergency Visit: Yes ED Registration Date: 11/11/18 Care time: The patient presented to the Emergency Department on the above date and was hospitalized for further evaluation of their emergent condition. - New Patient This patient is new to me today: Yes Date on this admission: 11/12/18 - Critical Care Critical Care patient: No
[2018-11-12 03:41] VITALS: BMI 33.6
[2018-11-12] MEDS ORDERED: ONDANSETRON 4 MG/2 ML VIAL IVPUSH PRN (04:57)
[2018-11-12] MEDS ORDERED: ONDANSETRON 4 MG/2 ML VIAL ONE (05:09)
--- NOTE | 2018-11-12 07:18 | PN ---
Progress Note (short form) - Note Progress Note: 32yo @ 25+wks here with bronchitis, cough and SOB. Appreciate medicine care Denies OB complaints, no VB/LOF. No ctx. +FM. VSS NAD Abd; soft, NT, gravid, obese Ext: no edema, no SCDs/TEDs on A/P: -Continue care per primary team -No OB concerns at this time; Will need one NST today. -We discussed antibiotics (Azithro if needed) and inhaler are safe to continue while . -Anticipate likely d/c to home today, can keep scheduled appointment with me on 7/12. MShlomo Barraza MD
[2018-11-12] MEDS ORDERED: PT OWN MED DRAWER 7, Y5N ONE (09:31)
--- NOTE | 2018-11-12 09:40 | PN ---
Progress Note (short form) - Note Progress Note: NST done at bedside. Reactive for GA, appropriate. No decels or contractions. Isidro Barraza
[2018-11-12] MEDS ORDERED: ACETAMINOPHEN 325 MG TABLET (FP) PO PRN (09:47)
[2018-11-12] MEDS ORDERED: PRENATAL VITAMINS W/ FOLIC ACID TABLET (FP) PO SCH (10:00)
[2018-11-12] MEDS ORDERED: ALBUTEROL SO4 8 GM HFA INHALER IH PRN (11:20)
--- NOTE | 2018-11-12 12:59 | PN ---
Teaching Attending Note Name of Resident: Chhaya Nicholas ATTENDING PHYSICIAN STATEMENT I saw and evaluated the patient. I reviewed the resident's note and discussed the case with the resident. I agree with the resident's findings and plan as documented. SUBJECTIVE: Feeling better. No further shortness of breath, cough resolving, non -productive today. No fever/chills. No further nausea/vomiting. No chest pain/ palpitations. OBJECTIVE: Afebrile, Hemodynamically Stable. Last Vital Signs Temp Pulse Resp BP Pulse Ox 98.1 F 87 20 113/53 L 96 11/12/18 06:00 11/12/18 06:00 11/12/18 06:00 11/12/18 06:00 11/12/18 09:00 Heart - S1, S2, RRR Lungs - clear to auscultation Abdomen - Soft, non-tender. Bowel Sounds normal. Extremities - no edema, no calf tenderness Laboratory Tests 11/11/18 11/11/18 06:20 06:20 WBC 9.5 RBC 4.29 Hgb 11.9 Hct 36.6 MCV 85.5 MCH 27.7 MCHC 32.4 RDW 13.9 Plt Count 315 D MPV 9.3 Sodium 140 Potassium 3.8 Chloride 110 H Carbon Dioxide 20 L Anion Gap 10 BUN 6.8 L Creatinine 0.5 L Est GFR (CKD-EPI)AfAm 148.42 Est GFR (CKD-EPI)NonAf 128.06 Random Glucose 77 Calcium 8.2 L Total Bilirubin 0.2 AST 18 ALT 26 Alkaline Phosphatase 65 Creatine Kinase 47 Troponin I < 0.02 B-Natriuretic Peptide 21.4 Total Protein 6.9 Albumin 2.8 L Current Medications Generic Name Dose Route Start Last Admin Trade Name Freq PRN Reason Stop Dose Admin Acetaminophen 650 mg 11/12/18 09:47 11/12/18 12:16 Tylenol - PO 650 mg Q6H PRN Administration Fever Or Pain Albuterol Sulfate 2 puff 11/12/18 11:20 Ventolin Hfa Inhaler - IH Q4H PRN SHORT OF BREATH/WHEEZING Ondansetron HCl 4 mg 11/12/18 04:57 11/12/18 05:14 Zofran Injection IVPUSH 4 mg Q4H PRN Administration NAUSEA AND/OR VOMITING Multivit/Folic Acid/Iron 1 tab 11/12/18 10:00 11/12/18 10:06 Vitamins (Sjr) - PO 1 tab DAILY AYAZ Administration ASSESSMENT AND PLAN: 32 year old , at 24 weeks of gestation, with no significant past medical history, presented to the ED due to sudden onset shortness of breath that started upon waking up yesterday morning. 1. Dyspnea, Possible Acute Bronchitis, likely Viral, no signs of sepsis No tachycardia or hypoxia, ambulating without dyspnea or desaturation. CTA Chest - no pulmonary emboli, no pneumonia, no congestion/fluid. No leukocytosis, no fever, no need for Abx therapy currently. Observed overnight without event. Medically optimized for discharge on Albuterol INH PRN. 2. , possible cause for HR in upper 90s/low 100s, physiologically normal for Evaluated by Obstetrics - NST appropriate for gestational age, no acute issues requiring further hospitalization Continue Vitamins and Ferrous Sulfate. Medically optimized for discharge with Obstetrics follow up 11/21
--- NOTE | 2018-11-12 14:09 | DS ---
Physical Exam: SUBJECTIVE: Patient seen and examined lying in bed today. She reports no difficulty breathing. She has no other complaints at this time. OBJECTIVE: Vital Signs Period Temp Pulse Resp BP Sys/Stephens Pulse Ox Last 24 Hr 97.9 F-98.1 F 87-105 18-24 88-113/50-78 24-99 PHYSICAL EXAM GENERAL: The patient is awake, alert, and fully oriented, in no acute distress. HEENT: No lymphadenopathy LUNGS: Breath sonds equal, clear to auscultation bilaterally. No wheezing noted. HEART: Regular rate and rhythm, S1, S2 without murmurs. ABDOMEN: patient is . No obvious deformities. EXTREMITIES: pulses 2+ intact UE & LE b/l. PSYCH: Normal mood, normal affect. SKIN: No scarring, bruising or rashes noted. LABS Laboratory Last Values WBC 9.5 K/mm3 (4.0-10.0) 11/11/18 06:20 RBC 4.29 M/mm3 (3.60-5.2) 11/11/18 06:20 Hgb 11.9 GM/dL (10.7-15.3) 11/11/18 06:20 Hct 36.6 % (32.4-45.2) 11/11/18 06:20 MCV 85.5 fl (80-96) 11/11/18 06:20 MCH 27.7 pg (25.7-33.7) 11/11/18 06:20 MCHC 32.4 g/dl (32.0-36.0) 11/11/18 06:20 RDW 13.9 % (11.6-15.6) 11/11/18 06:20 Plt Count 315 K/MM3 (134-434) D 11/11/18 06:20 MPV 9.3 fl (7.5-11.1) 11/11/18 06:20 Sodium 140 mmol/L (136-145) 11/11/18 06:20 Potassium 3.8 mmol/L (3.5-5.1) 11/11/18 06:20 Chloride 110 mmol/L (98-107) H 11/11/18 06:20 Carbon Dioxide 20 mmol/L (21-32) L 11/11/18 06:20 Anion Gap 10 MMOL/L (8-16) 11/11/18 06:20 BUN 6.8 mg/dL (7-18) L 11/11/18 06:20 Creatinine 0.5 mg/dL (0.55-1.3) L 11/11/18 06:20 Est GFR (CKD-EPI)AfAm 148.42 11/11/18 06:20 Est GFR (CKD-EPI)NonAf 128.06 11/11/18 06:20 Random Glucose 77 mg/dL (74-106) 11/11/18 06:20 Calcium 8.2 mg/dL (8.5-10.1) L 11/11/18 06:20 Total Bilirubin 0.2 mg/dL (0.2-1) 11/11/18 06:20 AST 18 U/L (15-37) 11/11/18 06:20 ALT 26 U/L (13-61) 11/11/18 06:20 Alkaline Phosphatase 65 U/L (45-117) 11/11/18 06:20 Creatine Kinase 47 U/L (26-192) 11/11/18 06:20 Troponin I < 0.02 ng/ml (0.00-0.05) 11/11/18 06:20 B-Natriuretic Peptide 21.4 pg/ml (5-125) 11/11/18 06:20 Total Protein 6.9 g/dl (6.4-8.2) 11/11/18 06:20 Albumin 2.8 g/dl (3.4-5.0) L 11/11/18 06:20 HOSPITAL COURSE: 32 y.o. currently at 24 weeks of gestation with no significant past medical history. She presented to the ED with complaints of shortness of breath for 1 day along with a productive cough for 1 week duration. She also reported nausea at that time for which she received 1 dose Zofran 4mg. Physical exam was notable for mild wheezing at that time. CXR and CTA were performed revealing no acute pathologies. EKG was normal. Lab results did not show any abnormalities. For her shortness of breath she received 1 dose methylprednisolone IV and an albuterol inhaler PRN. She is to follow up with her OB team for obstetric care. Minutes to complete discharge: 36 Discharge Summary Reason For Visit: TACHYCARDIA HYPOXIA VOMITING Current Active Problems Shortness of breath (Acute) Condition: Stable - Instructions Diet, Activity, Other Instructions: You presented to the hospital with shortness of breath. You had a chest X-ray and CT angiogram showing no abnormalities. Medication Changes: 1.Continue taking your vitamins, iron tablets as prescribed. Follow up with the following physicians: 1. Primary care provider in 1 week 2. [employer] Dr. Aponte on Saturday for your scheduled appointment-- your workup is not complete until this is completed. You are being discharged to your home. Continue all your medications as prescribed. Please return to the ER if you have any signs or symptoms of shortness of breath , chest pain, lightheadedness, fatigue, or muscle pains. Please return to the ER if symptoms persist, worsen, or new symptoms arise. Disposition: HOME - Home Medications Comprehensive Discharge Medication List: Ambulatory Orders Ferrous Sulfate [Iron] 325 mg PO DAILY 09/24/18 Vits96/Iron Fum/Folic [ Tablet] 1 tab PO DAILY 11/11/18 Albuterol Sulfate Inhaler - [Ventolin HFA Inhaler -] 1 puff IH Q4H PRN #1 inhaler 11/12/18 This patient is new to me today: No Emergency Visit: No Critical Care patient: No - Discharge Referral Referred to [facility] No
[2018-11-12 15:25] VITALS: BP 147/53; PULSE 95; TEMP 97.7
== END 2018-11-12 16:37 | disposition home or self-care (01) | DRG 566 ==
LOC: JER 05:32 → UNDOADMIN 12:37 → JERBED 12:37 → J4S 19:05
PROVIDERS: ADMIT Internal Medicine
PROC: 3E0F7GC Introduction of Other Therapeutic Substance into Respiratory Tract, Via Natural or Artificial Opening (ICD-10-PCS; principal; 2018-11-11)
DX: O26.892 Other specified pregnancy related conditions, second trimester (principal); E66.9 Obesity, unspecified; J20.8 Acute bronchitis due to other specified organisms; O99.212 Obesity complicating pregnancy, second trimester; Z3A.28 28 weeks gestation of pregnancy
CPT/HCPCS: 36415; 71046-TC-FY; 71275-TC; 80053; 82550; 83880; 84484; 85027; 93005; 93010; 94010; 99285-25

== ENCOUNTER 2018-12-04 23:29 | Emergency (ER) | payer SELFPAY | END 2018-12-05 05:45 | disposition home or self-care (01) | LOC: JER 12-05 05:45 | PROC: 3E0F7GC Introduction of Other Therapeutic Substance into Respiratory Tract, Via Natural or Artificial Opening (ICD-10-PCS; principal; 2018-12-04) | DX: O26.892 Other specified pregnancy related conditions, second trimester (principal); Z3A.27 27 weeks gestation of pregnancy; J45.21 Mild intermittent asthma with (acute) exacerbation ==

== ENCOUNTER 2018-12-07 17:46 | Inpatient (IN) | payer OTHER ==
[2018-12-07 17:57] VITALS: BMI 32.5
--- NOTE | 2018-12-07 18:23 | PDOC ---
History of Present Illness - General Chief Complaint: Shortness of Breath Stated Complaint: SOB & CHEST PAIN Time Seen by Provider: 12/07/18 18:02 - History of Present Illness Initial Comments: Ms. Luis is a 32 y/o female presenting today with shortness of breath at rest and worse on exertion and chest pain that started at 3pm. Denies hx of asthma, COPD, smoking hx. Reports that she has been feeling short of breath several times during this but never during prior pregnancies. Reports chest pain mid-sternal with intermittent radiation up the neck. Denies nausea/ vomiting, headache, fever. Reports productive cough over the past two weeks. Chest pain is pleuritic. Has albuterol inhaler at home and tried using it today but feels that it did not resolve SOB. She was seen here last as well as a few weeks ago for similar shortness of breath symptoms. CXR, D-dimer, CTA, EKG, troponins showed no ACS and no PE. Past History - Past Medical History Allergies/Adverse Reactions: Allergies Allergy/AdvReac Type Severity Reaction Status Date / Time No Known Drug Allergies Allergy Verified 12/07/18 17:57 mayonaise Allergy Intermediate Swelling Uncoded 12/07/18 17:57 seafood Allergy Intermediate Swelling Uncoded 12/07/18 17:57 Home Medications: Ambulatory Orders Vits96/Iron Fum/Folic [ Tablet] 1 tab PO DAILY 11/11/18 Albuterol Sulfate Inhaler - [Ventolin HFA Inhaler -] 1 puff IH Q4H PRN #2 inhaler 12/05/18 Asthma: No Cancer: No Cardiac Disorders: No COPD: No Diabetes: No HTN: No Seizures: No Thyroid Disease: No - Reproductive History (#): 7 Para: 6 Cervical CA: No Dysfunctional Uterine Bleeding: No Ectopic : No Endometrial CA: No Polycystic Ovaries: No Therapeutic (s) & number: No Tubal Ligation: No - Immunization History Immunization Up to Date: Yes - Suicide/Smoking/Psychosocial Hx Smoking History: Never smoked Have you smoked in the past 12 months: No Hx Alcohol Use: No Drug/Substance Use Hx: No Substance Use Type: None Hx Substance Use Treatment: No Review of Systems - Review of Systems Comments:: ROS GENERAL/CONSTITUTIONAL: No fever or chills. No weakness._ HEAD, EYES, EARS, NOSE AND THROAT: No change in vision. No ear pain or discharge. No sore throat._ CARDIOVASCULAR: Reports chest pain and shortness of breath. RESPIRATORY: Reports cough, denies hemoptysis_ GASTROINTESTINAL: No nausea, vomiting, diarrhea or constipation._ GENITOURINARY: No dysuria, frequency, or change in urination._ MUSCULOSKELETAL: No joint or muscle swelling or pain. No neck or back pain._ SKIN: No rash_ NEUROLOGIC: No headache, vertigo, loss of consciousness, or change in strength/ sensation._ ENDOCRINE: No increased thirst. No abnormal weight change_ HEMATOLOGIC/LYMPHATIC: No anemia, easy bleeding, or history of blood clots._ ALLERGIC/IMMUNOLOGIC: No hives or skin allergy._ *Physical Exam - Vital Signs Last Vital Signs Temp Pulse Resp BP Pulse Ox 98.4 F 148 H 24 H 119/74 93 L 12/07/18 17:50 12/07/18 17:50 12/07/18 17:50 12/07/18 17:50 12/07/18 17:50 - Physical Exam Comments: GENERAL: Awake, alert, and oriented to person/place/time, in no acute distress_ HEAD: No signs of trauma, normocephalic, atraumatic _ EYES: PERRLA, EOMI, sclera anicteric, conjunctiva clear_ ENT: Hearing grossly normal, nares patent, oropharynx clear without exudates. No uvular deviation. Moist mucosa_ NECK: Normal ROM, supple, no lymphadenopathy, JVD, or masses_ LUNGS: Increased work of breathing, speaks full sentences, rhonchi heard in bilateral upper/lower lung munoz. HEART: Tachycardia, normal S1 and S2, no murmurs appreciated, peripheral pulses normal and equal bilaterally._ ABDOMEN: Soft, nontender, normoactive bowel sounds. No guarding, no rebound. No masses_ EXTREMITIES: Normal inspection, Normal range of motion, no edema. No clubbing or cyanosis_ NEUROLOGICAL: Cranial nerves II through XII grossly intact. Normal speech, normal gait, no focal sensorimotor deficits _ SKIN: Warm, Dry, normal turgor, no rashes or lesions noted_ Medical Decision Making - Medical Decision Making 12/07/18 18:15 32F presenting with shortness of breath and chest pain for 2 hours. No PMH. Seen here this past as well as a few weeks ago for similar symptoms. From previous visits, CTA, d-dimer showed no PE. CXR, EKG, trop showed no ACS. 12/07/18 18:54 Wheezes in bilateral lung munoz. Pt on 2L NC, 125 mg solumedrol, 1 duoneb. 12/07/18 19:29 Pt reassessed after 1 duoneb. Mild wheezes in upper lung munoz. Reports that she is breathing more comfortably. 12/07/18 21:30 Wheezes mildly improved, patient still with labored breathing. Given that this is her third visit during this , plan to admit. Spoke with Dr. Vela who agrees to admit the patient. *DC/Admit/Observation/Transfer Diagnosis at time of Disposition: Asthma exacerbation Qualifiers: Asthma severity: unspecified severity Asthma persistence: unspecified Qualified Code(s): J45.901 - Unspecified asthma with (acute) exacerbation - Discharge Dispostion Disposition: HOME Condition at time of disposition: Stable Decision to Admit order: Yes - Referrals Referrals: Yoly Dixon MD [Primary Care Provider] - - Patient Instructions - Post Discharge Activity
[2018-12-07] MEDS ORDERED: methylPREDNISolone NA SUCC 125 MG/2 ML VIAL IVPUSH ONE (18:45)
[2018-12-07] MEDS ORDERED: ALBUTEROL SO4 2.5/IPRATROPIUM 0.5 INH SOL 3 ML VIAL.NEB. NEB ONE ×6 (18:52→21:25)
[2018-12-07] MEDS ORDERED: SODIUM CHLORIDE 0.9% 500 ML INFUS.BAG IV ONE (18:58)
[2018-12-07] MEDS ORDERED: methylPREDNISolone NA SUCC 125 MG/2 ML VIAL ONE (19:02)
--- NOTE | 2018-12-07 20:31 | PDOC ---
Documentation entered by Darian Bahena SCRIBE, acting as scribe for Angeles Evans MD. Angeles Evans MD: This documentation has been prepared by the Josef haas Daniel, SCRIBE, under my direction and personally reviewed by me in its entirety. I confirm that the documentation accurately reflects all work, treatment, procedures, and medical decision making performed by me. Attending Attestation - Resident Resident Name: Silvestre Ray - ED Attending Attestation I have performed the following: I have examined & evaluated the patient, The case was reviewed & discussed with the resident, I agree w/resident's findings & plan, Exceptions are as noted - HPI HPI: 12/07/18 18:50 The patient is a 32 year old female with no past medical history here today for evaluation of shortness of breath and chest pain. The patient reports that her shortness of breath has occurred several times throughout her current and her chest pain started around 3 pm today is mid sternal radiating to her neck and is worse with deep breaths. She also notes 2 weeks of a productive cough. Patient denies headache, lightheadedness. Denies fever, chills. Denies nausea, vomiting, diarrhea, abdominal pain. Allergies: NKDA - Physicial Exam PE: 12/07/18 19:18 Well-developed 32-year-old female presents with wheezing and tachycardia. Head normocephalic, atraumatic. eyes kelton eomi Neck supple Lungs scattered wheezing CVS sinus tachycardia Abdomen protuberant Skin warm and dry. Neurological alert and oriented 3, ambulatory, no gross focal neural deficits Psych appropriate - Medical Decision Making 12/07/18 19:20 Patient has had 3 visits to our emergency department this month for tachycardia and shortness of breath She is and on her first visit November 11. She did get a CT of the chest to rule out pulmonary embolism. CT of the chest was negative for any acute findings including pulmonary embolism. She was also seen December 04 and started on respiratory treatments, but denies taking any steroids. She has been wheezing at home and has used her daughter's nebulizer multiple times prior to her arrival 12/07/18 21:32 Despite resp treatments ,the pt still is wheezing and will be admitted Case discussed with Dr Rivas (boom cat operator) and she will be admitted by ob with medical consultation for asthma care 12/07/18 21:33
--- NOTE | 2018-12-07 21:54 | PN ---
Teaching Attending Note ATTENDING PHYSICIAN STATEMENT I saw and evaluated the patient. I reviewed the resident's note and discussed the case with the resident. I agree with the resident's findings and plan as documented. Thank you for allowing [facility] to consult on this admission. Patient presents for continued SOB as in prior presentation; no true desaturations, no desaturation on ambulation. Intermittent use of inhaler as OP with some relief. Still no OP PFTs. Hasn't seen pulmonary. Hemodynamically stable and afebrile. Prior studies reviewed. Would not order D-dimer as . VS, labs, imaging reviewed NAD, AAO, on RA Lungs mostly CTAB with very mild wheezing RRR s1/2 Normal mood, appropriate behavior CN2-12 wnl, no fnd ASSESSMENT AND PLAN: Patient with recurring SOB/wheezing and cough; has had improvement with nebs. As underlying asthma can worsen in , though she doesn't carry a diagnosis it is entirely posisble that she has interval worsening # Likely Asthma in -PRN albuterol, inhaled budosenide. Avoiding systemic steroids as no acutal desats with good air movement. -Consider pulmonary referral -Giving 2 IV magnesium -Incentive spirometry -OP PFTs; consider DC on inhaled steroids if improvement with this. Holding off on abx; no white count or fever. -Tachycardic; this worsens with albuterol use and predispositions to this. Full Code
[2018-12-07 22:17] LABS: BASO % 0.7 % (0-2.0); EOS % 0.6 % (0-4.5); HEMATOCRIT 32.7 % (32.4-45.2); HEMOGLOBIN 10.8 GM/dL (10.7-15.3); LYMPH % 7.9 % (8-40); MCHC 32.9 g/dl (32.0-36.0); MEAN PLT VOLUME 9.1 fl (7.5-11.1); MONO % 1.9 % (3.8-10.2); NEUT % 88.9 % (42.8-82.8); PLATELET COUNT 295 K/MM3 (134-434); RBC 3.84 M/mm3 (3.60-5.2); RDW 14.4 % (11.6-15.6); WHITE BLOOD COUNT 9.5 K/mm3 (4.0-10.0)
[2018-12-07 22:39] LABS: BILIRUBIN,TOTAL 0.2 mg/dL (0.2-1); BLOOD UREA NITROGEN 6.5 mg/dL (7-18); CALCIUM 8.8 mg/dL (8.5-10.1); CREATININE 0.7 mg/dL (0.55-1.3); POTASSIUM 3.9 mmol/L (3.5-5.1)
[2018-12-07] MEDS ORDERED: ALBUTEROL SO4 0.083% IH SOL 2.5 MG/3 ML VIAL.NEB. NEB PRN (23:00)
[2018-12-07] MEDS ORDERED: MAGNESIUM SULF 50% (8.12 MEQ/2 ML-1 GM VIAL) IVPB ONE (23:00)
--- NOTE | 2018-12-07 23:02 | CONSULT ---
Consultation: REQUESTING PROVIDER: dr lynne CONSULT REQUEST: We have been asked to medically evaluate this patient for ( specify). HISTORY OF PRESENT ILLNESS: 32 y/o female presenting today with shortness of breath at rest and worse on exertion and chest pain that started at 3pm. patient has been seen here mutiple times over the last few weeks with complaints of respiratory distress and chest pain- she has undergone CTA which was negative for PE; CXR most recent as two day ago which did now show any sign of acute pathology. she states she has been having this cough, somewhat productive with ywllow sputum denies any recent travel or sick contacts at home. patient states she has intermittently been using her inhalers which give some relief however she does not frequently use them this cough is associated with pleuritic chest pain- worsening each time she has a cough. denies any REVIEW OF SYSTEMS: CONSTITUTIONAL: Absent: fever, chills, diaphoresis, generalized weakness, malaise, loss of appetite, weight change HEENT: Absent: rhinorrhea, nasal congestion, throat pain, throat swelling, difficulty swallowing, mouth swelling, ear pain, eye pain, visual changes CARDIOVASCULAR: Absent: chest pain, syncope, palpitations, irregular heart rate, lightheadedness , peripheral edema RESPIRATORY: Present: cough; shortness of breath Absent: , dyspnea with exertion, orthopnea, wheezing, stridor, hemoptysis GASTROINTESTINAL: Absent: abdominal pain, abdominal distension, nausea, vomiting, diarrhea, constipation, melena, hematochezia GENITOURINARY: Absent: dysuria, frequency, urgency, hesitancy, hematuria, flank pain, genital pain MUSCULOSKELETAL: Absent: myalgia, arthralgia, joint swelling, back pain, neck pain SKIN: Absent: rash, itching, pallor HEMATOLOGIC/IMMUNOLOGIC: Absent: easy bleeding, easy bruising, lymphadenopathy, frequent infections ENDOCRINE: Absent: unexplained weight gain, unexplained weight loss, heat intolerance, cold intolerance NEUROLOGIC: Absent: headache, focal weakness or paresthesias, dizziness, unsteady gait, seizure, mental status changes, bladder or bowel incontinence PSYCHIATRIC: Absent: anxiety, depression, suicidal or homicidal ideation, hallucinations. PHYSICAL EXAMINATION Vital Signs - 24 hr 12/07/18 12/07/18 12/07/18 17:50 19:00 19:30 Temperature 98.4 F Pulse Rate 148 H Pulse Rate [ 129 H Apical] Respiratory 24 H 22 H Rate Blood Pressure 119/74 Blood Pressure 109/88 [Right Arm] O2 Sat by Pulse 93 L 93 L 97 Oximetry (%) 12/07/18 12/07/18 20:24 21:05 Temperature Pulse Rate Pulse Rate [ 111 H 117 H Apical] Respiratory 22 H 26 H Rate Blood Pressure Blood Pressure 99/59 L 96/69 [Right Arm] O2 Sat by Pulse 95 93 L Oximetry (%) GENERAL: Awake, alert, and fully oriented, in no acute distress. EYES: PEERLA: EOMI no scleral icterus NECK:no JVD; no lymphadenopathy LUNGS:wheezes auscultated in the upper lung munoz HEART: Regular rate and rhythm, normal S1 and S2 without murmur, rub or gallop. ABDOMEN: Soft, nontender, not distended, normoactive bowel sounds, no guarding, no rebound, no masses. No hepatomegaly or splenomegaly. MUSCULOSKELETAL: Normal range of motion at all joints. No bony deformities or tenderness. No CVA tenderness. EXTREMITIES: warm; well-perfused no clubbing/cyanosis or eedema NEUROLOGICAL: Cranial nerves II-XII intact. Normal speech. Normal gait. PSYCHIATRIC: Cooperative. Good eye contact. Appropriate mood and affect. SKIN: Warm, dry, normal turgor, no rashes or lesions noted. Laboratory Results - last 24 hr 12/07/18 12/07/18 22:00 22:00 WBC 9.5 RBC 3.84 Hgb 10.8 Hct 32.7 MCV 85.0 MCH 28.0 MCHC 32.9 RDW 14.4 Plt Count 295 MPV 9.1 Absolute Neuts (auto) 8.5 H Neutrophils % 88.9 H D Lymphocytes % 7.9 L D Monocytes % 1.9 L Eosinophils % 0.6 D Basophils % 0.7 Nucleated RBC % 0 Sodium 140 Potassium 3.9 Chloride 112 H Carbon Dioxide 20 L Anion Gap 9 BUN 6.5 L Creatinine 0.7 Est GFR (CKD-EPI)AfAm 132.87 Est GFR (CKD-EPI)NonAf 114.64 Random Glucose 136 H Calcium 8.8 Total Bilirubin 0.2 AST 16 ALT 23 Alkaline Phosphatase 77 Total Protein 7.0 Albumin 3.0 L Active Medications Generic Name Dose Route Start Last Admin Trade Name Freq PRN Reason Stop Dose Admin Albuterol Sulfate 1 amp 12/07/18 23:00 Ventolin 0.083% Nebulizer Soln - NEB Q6H PRN SHORT OF BREATH/WHEEZING Magnesium Sulfate 2 gm 12/07/18 23:00 Magnesium Sulfate IVPB 12/07/18 23:01 ONCE ONE ASSESSMENT/PLAN: 32 y/o female who presents to the ED with worsening cough and shortness of breath #Shortness of breath likely induced asthma -CTA and CXR done in the past weeks has all been normal -patient states she ahs some relief with nebulizers -no desaturation at rest or with exertion -will c/w albuterol PRN q6H -incentive spirometery -recommend outpatient PFTS -montior o2 saturations Dispo: We will continue to follow the patient. Thank you for this consultative opportunity. ATTENDING PHYSICIAN STATEMENT I saw and evaluated the patient. I reviewed the resident's note and discussed the case with the resident. I agree with the resident's findings and plan as documented. SUBJECTIVE: OBJECTIVE: ASSESSMENT AND PLAN:
[2018-12-07] MEDS ORDERED: MAGNESIUM 1GM/D5W - 2 GM/200 ML IVPB IVPB ONE (23:09)
[2018-12-08] MEDS ORDERED: DEXTROSE 5%-WATER - 1,000 ML IV SCH (01:45)
[2018-12-08] MEDS: ALBUTEROL SO4 0.083% IH SOL 2.5 MG/3 ML VIAL.NEB. NEB PRN ×3 (07:40→20:06)
[2018-12-08] MEDS: BUDESONIDE 0.25 MG/2ML INH SUSP VIAL NEB SCH ×2 (09:45→20:06)
--- NOTE | 2018-12-08 10:13 | EKG ---
Test Reason : Blood Pressure : / mmHG Vent. Rate : 142 BPM Atrial Rate : 142 BPM P-R Int : 126 ms QRS Dur : 064 ms QT Int : 292 ms P-R-T Axes : 068 044 042 degrees QTc Int : 449 ms SINUS TACHYCARDIA OTHERWISE NORMAL ECG WHEN COMPARED WITH ECG OF 05-DEC-2018 00:40, NO SIGNIFICANT CHANGE WAS FOUND Confirmed by RAMON DUNCAN MD ([id number]) on 12/08/2018 10:12:53 AM Referred By: Confirmed By:RAMON DUNCAN MD
[2018-12-08] MEDS ORDERED: MAGNESIUM SULF 50% (8.12 MEQ/2 ML-1 GM VIAL) IVPB ONE (12:00)
[2018-12-08] MEDS ORDERED: methylPREDNISolone NA SUCC 40 MG/1 ML VIAL IVPUSH ONE (12:00)
--- NOTE | 2018-12-08 13:17 | PN ---
Teaching Attending Note Name of Resident: Jason Estes ATTENDING PHYSICIAN STATEMENT I saw and evaluated the patient. I reviewed the resident's note and discussed the case with the resident. I agree with the resident's findings and plan as documented. SUBJECTIVE:currently asymptomatic. was never formally diagnosed with asthma. never had similar episodes in previous pregnancies. said she received abx recently but can not find anything charted. has been having cough with green sputum. denies fever, chills, night sweats OBJECTIVE: Last Vital Signs Temp Pulse Resp BP Pulse Ox 97.8 F 106 H 17 111/66 96 12/08/18 02:10 12/08/18 08:55 12/08/18 08:55 12/08/18 08:55 12/08/18 09:00 general NAD CV S1 S2 RRR no murmur/rub/gallop Lungs CTA B/L no wheezing/rales/rhonchi Abdomen gravid uterus Extremities +pitting edema ASSESSMENT AND PLAN: 32yo F who is currently 29+weeks here with dyspnea. Had extensive workup previous hospitalization with CTA, EKG, troponins and was negative and was sent with rescue inhaler returns with persistent dyspnea with productive cough 1. Acute asthma in - with possible bronchitis. will reach out to PMD if she indeed recently receive abx course. received solumedrol 125mcg in the Er. will give solumedrol 40mg now. Mg 2g. cont with inhaled budesonide. will consider pulmonary consult if there is no improvement. 2, Thank you for this consultative opportunity
--- NOTE | 2018-12-08 15:36 | PN ---
Physical Exam: SUBJECTIVE: Patient seen and examined OBJECTIVE: Vital Signs Period Temp Pulse Resp BP Sys/Stephens Pulse Ox Last 24 Hr 97.8 F-98.4 F 106-148 17-28 88-119/50-88 93-97 GENERAL: The patient is awake, alert, and fully oriented, in no acute distress. HEAD: Normal with no signs of trauma. EYES: PERRL, extraocular movements intact, sclera anicteric, conjunctiva clear. No ptosis. ENT: Ears normal, nares patent, oropharynx clear without exudates, moist mucous membranes. NECK: Trachea midline, full range of motion, supple. LUNGS: Breath sounds equal, clear to auscultation bilaterally, no wheezes, no crackles, no accessory muscle use. HEART: Regular rate and rhythm, S1, S2 without murmur, rub or gallop. ABDOMEN: Soft, nontender, nondistended, normoactive bowel sounds, no guarding, no rebound, no hepatosplenomegaly, no masses. EXTREMITIES: 2+ pulses, warm, well-perfused, no edema. NEUROLOGICAL: Cranial nerves II through XII grossly intact. Normal speech, gait not observed. PSYCH: Normal mood, normal affect. SKIN: Warm, dry, normal turgor, no rashes or lesions noted Laboratory Results - last 24 hr 12/07/18 12/07/18 22:00 22:00 WBC 9.5 RBC 3.84 Hgb 10.8 Hct 32.7 MCV 85.0 MCH 28.0 MCHC 32.9 RDW 14.4 Plt Count 295 MPV 9.1 Absolute Neuts (auto) 8.5 H Neutrophils % 88.9 H D Lymphocytes % 7.9 L D Monocytes % 1.9 L Eosinophils % 0.6 D Basophils % 0.7 Nucleated RBC % 0 Sodium 140 Potassium 3.9 Chloride 112 H Carbon Dioxide 20 L Anion Gap 9 BUN 6.5 L Creatinine 0.7 Est GFR (CKD-EPI)AfAm 132.87 Est GFR (CKD-EPI)NonAf 114.64 Random Glucose 136 H Calcium 8.8 Total Bilirubin 0.2 AST 16 ALT 23 Alkaline Phosphatase 77 Total Protein 7.0 Albumin 3.0 L Active Medications Generic Name Dose Route Start Last Admin Trade Name Freq PRN Reason Stop Dose Admin Albuterol Sulfate 1 amp 12/08/18 07:27 12/08/18 07:40 Ventolin 0.083% Nebulizer Soln - NEB 1 amp Q4H PRN Administration SHORT OF BREATH/WHEEZING Budesonide 1 amp 12/08/18 08:00 Pulmicort 0.25 Mg Nebulizer - NEB RBID AYAZ Dextrose 1,000 mls @ 75 mls/hr 12/08/18 01:45 12/08/18 00:15 D5w - IV 75 mls/hr ASDIR AYAZ Administration ASSESSMENT/PLAN: ATTENDING PHYSICIAN STATEMENT I saw and evaluated the patient. I reviewed the resident's note and discussed the case with the resident. I agree with the resident's findings and plan as documented. SUBJECTIVE: OBJECTIVE: ASSESSMENT AND PLAN:
--- NOTE | 2018-12-08 16:05 | PN ---
Physical Exam: SUBJECTIVE: Patient seen and examined at bedside on the obstetrics floor, c/o SOB and cough, which has since improved. She is having less difficulty breathing today. She denies CP. Her cough is productive of some green sputum, approximately one teaspoon or less, and has been present over the last three days. Pt has not been seen by PCP Dr. Yoly Ortega MD (2 Joss[address] Couch; ) since 11/07/18 per medical office ([facility]). The pt has used albuterol daily. She has been hospitalized three times for asthma exacerbation. She denies NVFD and chills. OBJECTIVE: Vital Signs Last Vital Signs Temp Pulse Resp BP Pulse Ox 97.8 F 106 H 17 111/66 96 12/08/18 02:10 12/08/18 08:55 12/08/18 08:55 12/08/18 08:55 12/08/18 09:00 GENERAL: The patient is awake, alert, and fully oriented, in no acute distress. Communicating well, in Polish. HEAD: Normal with no signs of trauma. LUNGS: +expiratory wheezes in AM. Breath sounds equal, clear to auscultation bilaterally and by PM, no wheezes, no crackles. No accessory muscle use. HEART: Regular rate and rhythm, S1, S2 without murmur, rub or gallop. ABDOMEN: Gravid, nontender, normoactive, bowel sounds present in all four quadrants. EXTREMITIES: 2+ pulses, warm, capillary refill w/in 3 seconds, no edema. PSYCH: Normal mood, normal affect. SKIN: Warm, dry, normal turgor, no rashes or lesions noted Laboratory Results - last 24 hr 12/07/18 12/07/18 22:00 22:00 WBC 9.5 RBC 3.84 Hgb 10.8 Hct 32.7 MCV 85.0 MCH 28.0 MCHC 32.9 RDW 14.4 Plt Count 295 MPV 9.1 Absolute Neuts (auto) 8.5 H Neutrophils % 88.9 H D Lymphocytes % 7.9 L D Monocytes % 1.9 L Eosinophils % 0.6 D Basophils % 0.7 Nucleated RBC % 0 Sodium 140 Potassium 3.9 Chloride 112 H Carbon Dioxide 20 L Anion Gap 9 BUN 6.5 L Creatinine 0.7 Est GFR (CKD-EPI)AfAm 132.87 Est GFR (CKD-EPI)NonAf 114.64 Random Glucose 136 H Calcium 8.8 Total Bilirubin 0.2 AST 16 ALT 23 Alkaline Phosphatase 77 Total Protein 7.0 Albumin 3.0 L Active Medications Current Medications Albuterol Sulfate (Ventolin 0.083% Nebulizer Soln -) 1 amp NEB Q4H PRN PRN Reason: SHORT OF BREATH/WHEEZING Last Admin: 12/08/18 15:59 Dose: 1 amp Budesonide (Pulmicort 0.25 Mg Nebulizer -) 1 amp NEB RBID [facility] Dextrose (D5w -) 1,000 mls @ 75 mls/hr IV ASDIR [facility] Last Admin: 12/08/18 00:15 Dose: 75 mls/hr ASSESSMENT/PLAN: 32 y/o female at 29 weeks with dyspnea and cough # Asthma exacerbation with acute bronchitis - NO evidence of PE (CTA on 11/11/18 negative) - NO evidence of cardiac pathology: negative EKG, negative troponins - Pt is afebrile. Will monitor off abx with use of inhaled bronchodilators. - Given solumedrol 40mg and magnesium 2g today - Continue current regimen of budesonide - Consult pulmonology if symptoms worsen #FEN - Not on any standing fluids - Electrolytes wnl; routine BMP monitoring - Regular diet #Prophylaxis -Early ambulation #Disposition -full code Visit type - Emergency Visit Emergency Visit: Yes ED Registration Date: 12/07/18 Care time: The patient presented to the Emergency Department on the above date and was hospitalized for further evaluation of their emergent condition. - New Patient This patient is new to me today: Yes Date on this admission: 12/08/18 - Critical Care Critical Care patient: No ATTENDING PHYSICIAN STATEMENT I saw and evaluated the patient. I reviewed the resident's note and discussed the case with the resident. I agree with the resident's findings and plan as documented. SUBJECTIVE: OBJECTIVE: ASSESSMENT AND PLAN:
[2018-12-08] MEDS ORDERED: MAGNESIUM 1GM/D5W - 1 GM/100 ML IVPB IVPB SCH (17:30)
--- NOTE | 2018-12-08 21:43 | HP ---
Past Medical History - Primary Care Physician PCP:: Pernell Vela - Admission Chief Complaint: 28 weeks , asthma History of Present Illness: 32 yo f 0 2 6. 28 weeks admitted for worsenning cough, SOB , and chest discomfort , have had CTA of chest ,negative for Pulmonary emboli , admitted for management of asthma , no fever , good fm, no contraction, no bleeding History Source: Patient Limitations to Obtaining History: No Limitations - Past Medical History Pulmonary: Yes: COPD ...: 9 ...Para: 6 ...Term: 6 ...: 0 ...Spon : 2 ...Induced : 0 ...Multiple Gestation: 0 ...LMP: 05/15/18 ... Weeks Gestation by Dates: 29.4 ...EDC by Dates: 02/19/19 ...EDC by Sono: 02/24/19 - Past Surgical History Hx Myomectomy: No Hx Transabdominal Cerclage: No - Smoking History Smoking history: Never smoked Have you smoked in the past 12 months: No - Alcohol/Substance Use Hx Alcohol Use: No History of Substance Use: reports: None - Social History ADL: Independent History of Recent Travel: No Home Medications - Allergies Allergies/Adverse Reactions: Allergies Allergy/AdvReac Type Severity Reaction Status Date / Time No Known Drug Allergies Allergy Verified 12/07/18 17:57 mayonaise Allergy Intermediate Swelling Uncoded 12/07/18 17:57 seafood Allergy Intermediate Swelling Uncoded 12/07/18 17:57 - Home Medications Home Medications: Ambulatory Orders Vits96/Iron Fum/Folic [ Tablet] 1 tab PO DAILY 11/11/18 Albuterol Sulfate Inhaler - [Ventolin HFA Inhaler -] 1 puff IH Q4H PRN #2 inhaler 12/05/18 Ferrous Sulfate [Feosol] 325 mg PO DAILY 12/08/18 Review of Systems - Review of Systems Constitutional: reports: No Symptoms Eyes: reports: No Symptoms HENT: reports: No Symptoms Neck: reports: No Symptoms Cardiovascular: reports: Shortness of Breath Respiratory: reports: SOB on Exertion, Wheezing Gastrointestinal: reports: No Symptoms Genitourinary: reports: No Symptoms Breasts: reports: No Symptoms Reported Musculoskeletal: reports: No Symptoms Integumentary: reports: No Symptoms Neurological: reports: No Symptoms Endocrine: reports: No Symptoms Hematology/Lymphatic: reports: No Symptoms Psychiatric: reports: No Symptoms Physical Exam - Maternity Vital Signs: Vital Signs Temperature 97.8 F 12/08/18 02:10 Pulse Rate 106 H 12/08/18 08:55 Respiratory Rate 17 12/08/18 08:55 Blood Pressure 111/66 12/08/18 08:55 O2 Sat by Pulse Oximetry (%) 96 12/08/18 09:00 Constitutional: Yes: Well Nourished, No Distress, Calm Eyes: Yes: WNL, Conjunctiva Clear, EOM Intact HENT: Yes: WNL, Atraumatic, Normocephalic Neck: Yes: WNL, Supple, Trachea Midline Cardiovascular: Yes: WNL, Regular Rate and Rhythm Breast(s): Yes: WNL - Abdominal Exam/OB Fundal Height: 28 Number of Fetuses: Single Presentation: Breech Contractions: No Intensity: Unaware Monitor Mode: External Heart Rate Location: Midline Category: I - Vaginal Exam/OB Vaginal Bleediing: No Speculum Exam: No Dilatation (cm): closed Effacement (%): 0 Amniotic Membrane Status: Intact Presentation: Brian Breech Station: -3 - Physical Exam Musculoskeletal: Yes: WNL Extremities: Yes: WNL Edema: Yes Edema: LLE: Trace, RLE: Trace Deep Tendon Reflex Grade: Normal +2 Psychiatric: Yes: WNL - Labs Lab Results: CBC, BMP 12/07/18 22:00 12/07/18 22:00 Problem List - Problems (1) with 28 completed weeks gestation Code(s): Z3A.28 - 28 WEEKS GESTATION OF (2) Asthma affecting in third trimester Code(s): O99.513 - DISEASES OF THE RESP SYS COMP , THIRD TRIMESTER; J45.909 - UNSPECIFIED ASTHMA, UNCOMPLICATED Assessment/Plan admit medical management of asthma NST daily BPP
[2018-12-09] MEDS: ALBUTEROL SO4 0.083% IH SOL 2.5 MG/3 ML VIAL.NEB. NEB PRN ×2 (01:12→06:25)
--- NOTE | 2018-12-09 07:39 | PN ---
Progress Note (short form) - Note Progress Note: HD 1, 26 weeks , asthma feel better today , breathing easy,, has cough good FM CBC, BMP 12/07/18 22:00 12/07/18 22:00 Last Vital Signs Temp Pulse Resp BP Pulse Ox 99 F 100 H 18 95/48 L 97 12/08/18 22:00 12/08/18 22:00 12/08/18 22:00 12/08/18 22:00 12/08/18 21:00 abdomen soft, no distension, no cva uterus non tender no vaginal discharge no calf tenderness plan .cont, nebulazier tx medical evaluation. BPP today Problem List - Problems (1) with 28 completed weeks gestation Code(s): Z3A.28 - 28 WEEKS GESTATION OF (2) Asthma affecting in third trimester Code(s): O99.513 - DISEASES OF THE RESP SYS COMP , THIRD TRIMESTER; J45.909 - UNSPECIFIED ASTHMA, UNCOMPLICATED
[2018-12-09 08:06] LABS: HEMATOCRIT 29.9 % (32.4-45.2); HEMOGLOBIN 9.9 GM/dL (10.7-15.3); MCH 28.2 pg (25.7-33.7); MCHC 32.9 g/dl (32.0-36.0); MEAN CELL VOLUME 85.5 fl (80-96); PLATELET COUNT 296 K/MM3 (134-434); RDW 14.6 % (11.6-15.6); WHITE BLOOD COUNT 9.3 K/mm3 (4.0-10.0)
--- NOTE | 2018-12-09 08:08 | PN ---
Physical Exam: SUBJECTIVE: Patient seen and examined at bedside on obstetrics floor for SOB and cough. She no longer complains of SOB. Pt has used nebulizer x1 overnight and x1 nebulizer use in AM with x1 episode of non-productive coughing. She denies CP or throat irritation. Pt denies NVFD. OBJECTIVE: Vital Signs Last Vital Signs Temp Pulse Resp BP Pulse Ox 99 F 100 H 18 100/78 L 97 12/08/18 22:00 12/08/18 22:00 12/08/18 22:00 12/08/18 22:00 12/08/18 21:00 GENERAL: The patient is awake, alert, and fully oriented, in no acute distress. Pt communicates in Sami. HEAD: Normal with no signs of trauma. ENT: Oropharynx clear without exudates, moist mucous membranes. LUNGS: Breath sounds equal, clear to auscultation bilaterally, no wheezes, no crackles, no accessory muscle use. HEART: Regular rate and rhythm, S1, S2 + systolic murmur otherwise no rub or gallop. ABDOMEN: +Gravid, soft, nontender, normoactive bowel sounds EXTREMITIES: 2+ pulses, warm, well-perfused, no edema, no calf tenderness PSYCH: Normal mood, normal affect. SKIN: Warm, dry, normal turgor, no rashes or lesions noted Active Medications Current Medications Albuterol Sulfate (Ventolin 0.083% Nebulizer Soln -) 1 amp NEB Q4H PRN PRN Reason: SHORT OF BREATH/WHEEZING Last Admin: 12/09/18 06:25 Dose: 1 amp Budesonide (Pulmicort 0.25 Mg Nebulizer -) 1 amp NEB RBID [facility] Last Admin: 12/08/18 20:06 Dose: 1 amp Dextrose (D5w -) 1,000 mls @ 75 mls/hr IV ASDIR [facility] Last Admin: 12/08/18 00:15 Dose: 75 mls/hr ASSESSMENT/PLAN: 32 y/o F at 29 weeks with cough # Acute viral bronchitis - Recommend bronchodilator nebulizer at home. Pt states she has access to nebulizer at home. - F/u with primary care provider for routine care # F/E/N - No standing fluids - D/C routine labs - Regular diet # Prophylaxis - Regular ambulation # Dispo - Discharge to home Medical team recommends plan above. Please contact again if needed. Thank you for this consultational opportunity. Visit type - Emergency Visit Emergency Visit: No - New Patient This patient is new to me today: No - Critical Care Critical Care patient: No - Discharge Referral Referred to [facility] No ATTENDING PHYSICIAN STATEMENT I saw and evaluated the patient. I reviewed the resident's note and discussed the case with the resident. I agree with the resident's findings and plan as documented. SUBJECTIVE: OBJECTIVE: ASSESSMENT AND PLAN:
[2018-12-09] MEDS: BUDESONIDE 0.25 MG/2ML INH SUSP VIAL NEB SCH (08:20)
[2018-12-09 09:52] LABS: BLOOD UREA NITROGEN 6.6 mg/dL (7-18); CALCIUM 8.1 mg/dL (8.5-10.1); CREATININE 0.6 mg/dL (0.55-1.3); MAGNESIUM 1.9 mg/dL (1.8-2.4); PHOSPHOROUS 3.9 mg/dL (2.5-4.9); POTASSIUM 3.9 mmol/L (3.5-5.1)
[2018-12-09 11:48] VITALS: BP 100/78; PULSE 104; TEMP 98.1
--- NOTE | 2018-12-09 13:00 | PN ---
Teaching Attending Note Name of Resident: Jason Estes ATTENDING PHYSICIAN STATEMENT I saw and evaluated the patient. I reviewed the resident's note and discussed the case with the resident. I agree with the resident's findings and plan as documented. SUBJECTIVE: Breathing much improved. No sputum/hemoptysis. no chest pain/ palpitations. No fever/chills. OBJECTIVE: Afebrile, Hemodynamically Stable. Last Vital Signs Temp Pulse Resp BP Pulse Ox 98.1 F 104 H 17 100/78 95 12/09/18 11:47 12/09/18 11:47 12/09/18 11:47 12/09/18 11:47 12/09/18 09:00 HEENT - Atraumatic, Normocephalic Heart - S1, S2, RRR Lungs - clear to auscultation Abdomen - Gravid abdomen, non-tender. Bowel Sounds normal. Extremities - no edema, no calf tenderness Laboratory Results - last 24 hr 12/09/18 12/09/18 07:15 07:15 WBC 9.3 RBC 3.50 L Hgb 9.9 L Hct 29.9 L MCV 85.5 MCH 28.2 MCHC 32.9 RDW 14.6 Plt Count 296 MPV 9.0 Sodium 140 Potassium 3.9 Chloride 111 H Carbon Dioxide 20 L Anion Gap 9 BUN 6.6 L Creatinine 0.6 Est GFR (CKD-EPI)AfAm 139.78 Est GFR (CKD-EPI)NonAf 120.61 Random Glucose 95 Calcium 8.1 L Phosphorus 3.9 Magnesium 1.9 Current Medications Generic Name Dose Route Start Last Admin Trade Name Freq PRN Reason Stop Dose Admin Albuterol Sulfate 1 amp 12/08/18 07:27 12/09/18 06:25 Ventolin 0.083% Nebulizer Soln - NEB 1 amp Q4H PRN Administration SHORT OF BREATH/WHEEZING Budesonide 1 amp 12/08/18 08:00 12/09/18 08:20 Pulmicort 0.25 Mg Nebulizer - NEB 1 amp RBID AYAZ Administration Dextrose 1,000 mls @ 75 mls/hr 12/08/18 01:45 12/08/18 00:15 D5w - IV 75 mls/hr ASDIR AYAZ Administration ASSESSMENT AND PLAN: 32 year old female 29 weeks pregnent, admitted with dyspnea and cough, treated for acute viral bronchitis, with improvement in her symptoms. She had work-up for PE including CTA Chest which was negative. Acute Viral Bronchitis, with reactive airways - responded to Bronchodilator and Budesonide Nebs as well as pulse dose Solumedrol. Recommend holding off any further systemic steroids or antibiotics at this point. She is advised to seek medical attention if any worsening of her symptoms. She has shown improvement in symptoms and is currently medically optimized. The recommendation is for 5 additional days of regular Budesonide and Albuterol Nebs with Albuterol PRN after. Thank you for the kind consideration of this consultation.
== END 2018-12-09 16:23 | disposition home or self-care (01) | DRG 566 ==
LOC: SUPCPDRO 17:46 → JER 17:46 → JERBED 21:27 → J3W 12-08 00:05
PROVIDERS: ADMIT Obstetrics & Gynecology; ATTEND Obstetrics & Gynecology
PROC: 3E0F7GC Introduction of Other Therapeutic Substance into Respiratory Tract, Via Natural or Artificial Opening (ICD-10-PCS; principal; 2018-12-07)
DX: O99.513 Diseases of the respiratory system complicating pregnancy, third trimester (principal); J45.901 Unspecified asthma with (acute) exacerbation; J20.9 Acute bronchitis, unspecified; Z3A.29 29 weeks gestation of pregnancy
CPT/HCPCS: 36415; 80048; 80053; 83735; 84100; 85025; 85027; 93005; 93010; 94640; 99284-25

== ENCOUNTER 2019-02-19 16:33 | Inpatient (IN) | payer OTHER ==
[2019-02-19 21:33] VITALS: BMI 33.9
[2019-02-19] MEDS ORDERED: ALBUTEROL SO4 8 GM HFA INHALER IH PRN (21:37)
[2019-02-19] MEDS ORDERED: PROMETHAZINE HCL 25 MG/1 ML VIAL IVPB ONE (21:38)
[2019-02-19] MEDS ORDERED: BUTORPHANOL TARTRATE 1 MG/ML VIAL IVPUSH PRN (21:38)
[2019-02-19] MEDS ORDERED: DEXTROSE 5%-LACTATED RINGERS 1,000 ML IV SCH ×2 (21:45→22:00)
--- NOTE | 2019-02-19 21:49 | HP ---
Past Medical History - Primary Care Physician PCP:: Pernell Vela - Admission Chief Complaint: 38 weeks, labor, grand multiparity History of Present Illness: 38 yo f edc by date 02/19/19 , c/o contraction, no rom, no bleeding, cx 3 cm 70 vx -3 mi, bulging , fhr cat 1 History Source: Patient Limitations to Obtaining History: No Limitations - Past Medical History Pulmonary: Yes: Asthma, COPD ...: 9 ...Para: 6 ...Term: 6 ...: 0 ...Spon : 2 ...Induced : 0 ...Multiple Gestation: 0 ...LMP: 05/15/17 ... Weeks Gestation by Dates: 40.0 ...EDC by Dates: 02/19/19 ...EDC by Sono: 02/24/19 - Past Surgical History Past Surgical History: Yes: None (ectopic ) Hx Myomectomy: No Hx Transabdominal Cerclage: No - Smoking History Smoking history: Never smoked Have you smoked in the past 12 months: No - Alcohol/Substance Use Hx Alcohol Use: No History of Substance Use: reports: None - Social History Usual Living Arrangement: Yes: With Spouse ADL: Independent History of Recent Travel: No Home Medications - Allergies Allergies/Adverse Reactions: Allergies Allergy/AdvReac Type Severity Reaction Status Date / Time No Known Drug Allergies Allergy Verified 02/19/19 18:19 mayonaise Allergy Intermediate Swelling Uncoded 02/19/19 18:19 seafood Allergy Intermediate Swelling Uncoded 02/19/19 18:20 - Home Medications Home Medications: Ambulatory Orders Vits96/Iron Fum/Folic [ Tablet] 1 tab PO DAILY 11/11/18 Albuterol Sulfate Inhaler - [Ventolin HFA Inhaler -] 1 puff IH PRN PRN 02/08/19 Physical Exam - Maternity Vital Signs: Vital Signs Temperature 98.2 F 02/19/19 16:37 Pulse Rate 155 H 02/19/19 16:37 Respiratory Rate 18 02/19/19 16:37 Blood Pressure 92/54 L 02/19/19 16:37 O2 Sat by Pulse Oximetry (%) Constitutional: Yes: Obese Eyes: Yes: WNL HENT: Yes: WNL Neck: Yes: WNL Cardiovascular: Yes: WNL Breast(s): Yes: WNL - Abdominal Exam/OB Fundal Height: 40 Number of Fetuses: Single Presentation: Vertex Contractions: Yes Regularity: Irregular Intensity: Mod/Strong Monitor Mode: External Heart Rate Location: LLQ Accelerations: Uniform Decelerations: None - Vaginal Exam/OB Vaginal Bleediing: No Speculum Exam: No Dilatation (cm): 3 cm Effacement (%): 70 Amniotic Membrane Status: Bulging Presentation: Vertex/Position Station: -3 - Physical Exam Musculoskeletal: Yes: WNL Edema: Yes Edema: LLE: Trace, RLE: Trace Deep Tendon Reflex Grade: Normal +2 ...Motor Strength: WNL Psychiatric: Yes: WNL Hemorrhage Risk Assessment - Risk Factors Medium Risk Factors: Yes: Multiple gestation Risk Score: 1 Risk Level: Medium Risk Problem List - Problems (1) with 38 completed weeks gestation Code(s): Z3A.38 - 38 WEEKS GESTATION OF (2) Labor established Code(s): OLD5219 - (3) Asthma affecting in third trimester Code(s): O99.513 - DISEASES OF THE RESP SYS COMP , THIRD TRIMESTER; J45.909 - UNSPECIFIED ASTHMA, UNCOMPLICATED (4) Grand multipara in labor Code(s): O09.40 - SUPERVISION OF W GRAND MULTIPARITY, UNSP TRIMESTER (5) Obesity Code(s): E66.9 - OBESITY, UNSPECIFIED Assessment/Plan admit , GBS negative fhm scd teds if irregular period may benfit from low dose pitocin , risks discussed
[2019-02-19 22:37] LABS: BASO % 1.1 % (0-2.0); EOS % 2.8 % (0-4.5); HEMATOCRIT 34.4 % (32.4-45.2); HEMOGLOBIN 10.9 GM/dL (10.7-15.3); MCHC 31.7 g/dl (32.0-36.0); MEAN CELL VOLUME 85.1 fl (80-96); MEAN PLT VOLUME 10.5 fl (7.5-11.1); MONO % 5.5 % (3.8-10.2); NEUT % 66.6 % (42.8-82.8); PLATELET COUNT 248 K/MM3 (134-434); RBC 4.04 M/mm3 (3.60-5.2); RDW 15.6 % (11.6-15.6); WHITE BLOOD COUNT 8.6 K/mm3 (4.0-10.0)
[2019-02-19 22:47] LABS: INR 1.04 (0.83-1.09); PROTHROMBIN TIME (PATIENT) 12.3 SEC (9.7-13.0)
[2019-02-19 22:50] LABS: ACTIVATED PTT 30.1 SECONDS (25.2-36.5)
[2019-02-19 22:55] LABS: BLOOD UREA NITROGEN 7.2 mg/dL (7-18); CREATININE 0.6 mg/dL (0.55-1.3)
[2019-02-20] MEDS: ELECTROLYTE-148 SOLN 1,000 ML IV SCH (00:30)
[2019-02-20] MEDS: FENTANYL/BUPIVACAINE/NS/PF - PCEA - 50 ML DISP.SYRIN EP SCH (01:10)
[2019-02-20] MEDS ORDERED: FENTANYL/BUPIVACAINE/NS/PF - PCEA - 50 ML DISP.SYRIN EP ONE (01:18)
[2019-02-20] MEDS: OXYTOCIN 30 UNITS in 0.9% NS 30 UNIT/500 ML INFUS.BAG IVPB SCH (01:30)
[2019-02-20] MEDS ORDERED: OXYTOCIN 30 UNITS in 0.9% NS 30 UNIT/500 ML INFUS.BAG IVPB ONE (01:36)
[2019-02-20] MEDS ORDERED: NALOXONE HCL 0.4 MG/ML VIAL IVPUSH PRN (01:42)
[2019-02-20] MEDS ORDERED: CITRIC ACID/SODIUM CITRATE 30 ML UNIT-DOSE CUP PO ONE (04:29)
--- NOTE | 2019-02-20 04:29 | PN ---
Progress Note (short form) - Note Progress Note: cx 7 cm , 80 , bulging membrane , presenting part could not be felt , sono done at bed side , breech presentation confirmed , presenting part changed to breech advised c/s, risks explained Problem List - Problems (1) with 38 completed weeks gestation Code(s): Z3A.38 - 38 WEEKS GESTATION OF (2) Labor established Code(s): UYQ8506 - (3) Asthma affecting in third trimester Code(s): O99.513 - DISEASES OF THE RESP SYS COMP , THIRD TRIMESTER; J45.909 - UNSPECIFIED ASTHMA, UNCOMPLICATED (4) Grand multipara in labor Code(s): O09.40 - SUPERVISION OF W GRAND MULTIPARITY, UNSP TRIMESTER (5) Obesity Code(s): E66.9 - OBESITY, UNSPECIFIED
[2019-02-20] MEDS ORDERED: LIDO 2%/EPI 1:200000 PRESRVFRE (20 ML SDVIAL) ONE (05:03)
[2019-02-20] MEDS ORDERED: OXYTOCIN 20 UNITS in 0.9% NS 20 UNIT/1,000 ML INFUS.BAG IV ONE (05:03)
[2019-02-20] MEDS ORDERED: SODIUM BICARBONATE 8.4% 50 MEQ/50 ML VIAL ONE (05:04)
[2019-02-20] MEDS ORDERED: ceFAZolin SODIUM 1 GM VIAL ONE (05:16)
[2019-02-20] MEDS ORDERED: PHENYLEPHRINE HCL 10 MG/1 ML SINGLE DOSE VIAL ONE (05:16)
[2019-02-20] MEDS ORDERED: ePHEDrine SULFATE 50 MG/1 ML AMPULE ONE (05:48)
[2019-02-20] MEDS ORDERED: MIDAZOLAM HCL 2 MG/2 ML SINGLE DOSE VIAL ONE (05:57)
[2019-02-20] MEDS ORDERED: oxyCODONE HCL 5 MG TABLET PO PRN (06:16)
[2019-02-20] MEDS ORDERED: METHYLERGONOVINE MALEATE 0.2 MG/1 ML AMP IM PRN (06:16)
[2019-02-20] MEDS ORDERED: BENZOCAINE 20% 57 GM BOTTLE TP PRN (06:16)
[2019-02-20] MEDS ORDERED: BENZOCAINE 28 GM HEMORRHOIDAL OINTMENT PR PRN (06:16)
[2019-02-20] MEDS ORDERED: diphenhydrAMINE HCL 25 MG CAPSULE (FP) PO PRN (06:16)
[2019-02-20] MEDS ORDERED: WITCH HAZEL 50% (TUCKS) 40 PAD/JAR PAD TP PRN (06:16)
--- NOTE | 2019-02-20 06:21 | OP ---
Operative Note - Note: Operative Date: 02/20/19 Pre-Operative Diagnosis: 38 weeks, labor, breech Operation: primary LST c/s , BTL Findings: live baby boy, single footling breech , cord around neck , 4/9 Surgeon: Pernell Vela Photogrammetric Stereo Compiler: Seth Hale Anesthesiologist/PUBLICATIONS MANAGER: Nya Moy Anesthesia: Epidural Specimens Removed: placenta, portion of Rt, LT tube Estimated Blood Loss (mls): 500 Blood Volume Replaced (mls): 0 Operative Report Dictated: Yes
[2019-02-20] MEDS ORDERED: OXYTOCIN 20 UNITS in 0.9% NS 20 UNIT/1,000 ML INFUS.BAG IV SCH (06:30)
[2019-02-20] MEDS ORDERED: ONDANSETRON 4 MG/2 ML VIAL IVPUSH PRN (06:33)
[2019-02-20] MEDS: IBUPROFEN 800 MG/8 ML IJ IVPB PRN ×2 (07:45→17:27)
[2019-02-20] MEDS: CEFAZOLIN 1 GM/D5W 1 GM/50 ML BAG IVPB SCH ×2 (10:07→17:14)
[2019-02-21] MEDS: ACETAMINOPHEN 325 MG TABLET (FP) PO PRN ×3 (00:01→22:18)
[2019-02-21] MEDS: SIMETHICONE 80 MG TAB.CHEW (FP) PO PRN ×4 (00:01→22:17)
[2019-02-21] MEDS: oxyCODONE HCL 5 MG TABLET PO PRN ×3 (00:01→07:50)
[2019-02-21] MEDS: IBUPROFEN 600 MG TABLET (FP) PO PRN ×4 (05:56→22:19)
[2019-02-21] MEDS ORDERED: BISACODYL 10 MG SUPP.RECT RC PRN (06:16)
--- NOTE | 2019-02-21 08:49 | PN ---
Post Progress Note - Subjective Subjective: Ambulating, tolerating PO, lochia decreased, voiding, breast feeding Post Day: 1 Type of Delivery: Primary C/S Vital Signs: Vital Signs Temperature 97.8 F 02/21/19 06:00 Pulse Rate 88 02/21/19 06:00 Respiratory Rate 18 02/21/19 06:00 Blood Pressure 108/67 02/21/19 06:00 O2 Sat by Pulse Oximetry (%) 95 02/20/19 08:15 Breast Exam: Yes: Other (deferred) Uterus: Yes: Fundus Firm Incision: Yes: Dressing dry and intact, Trevor intact Abdomen/GI: Yes: Abdomen soft Lochia, amount: Moderate Extremities: Yes: Calves non-tender Activity: Ambulating - Labs Labs: CBC WBC 8.6 K/mm3 (4.0-10.0) 02/19/19 22:10 RBC 4.04 M/mm3 (3.60-5.2) 02/19/19 22:10 Hgb 10.9 GM/dL (10.7-15.3) 02/19/19 22:10 Hct 34.4 % (32.4-45.2) D 02/19/19 22:10 MCV 85.1 fl (80-96) 02/19/19 22:10 MCH 27.0 pg (25.7-33.7) 02/19/19 22:10 MCHC 31.7 g/dl (32.0-36.0) L 02/19/19 22:10 RDW 15.6 % (11.6-15.6) 02/19/19 22:10 Plt Count 248 K/MM3 (134-434) 02/19/19 22:10 MPV 10.5 fl (7.5-11.1) D 02/19/19 22:10 Absolute Neuts (auto) 5.7 K/mm3 (1.5-8.0) 02/19/19 22:10 Neutrophils % 66.6 % (42.8-82.8) D 02/19/19 22:10 Lymphocytes % 24.0 % (8-40) D 02/19/19 22:10 Monocytes % 5.5 % (3.8-10.2) D 02/19/19 22:10 Eosinophils % 2.8 % (0-4.5) D 02/19/19 22:10 Basophils % 1.1 % (0-2.0) 02/19/19 22:10 Nucleated RBC % 0 % (0-0) 02/19/19 22:10 Assessment/Plan POD # 1 in stable condition -Encouraged ambulation -AM CBC -Anticipate D/C home on POD # 3
[2019-02-21 09:53] LABS: BASO % 0.4 % (0-2.0); EOS % 1.5 % (0-4.5); HEMATOCRIT 30.2 % (32.4-45.2); HEMOGLOBIN 9.7 GM/dL (10.7-15.3); LYMPH % 22.1 % (8-40); MCH 27.6 pg (25.7-33.7); MCHC 32.2 g/dl (32.0-36.0); MEAN CELL VOLUME 85.8 fl (80-96); MEAN PLT VOLUME 9.5 fl (7.5-11.1); MONO % 5.7 % (3.8-10.2); NEUT % 70.3 % (42.8-82.8); PLATELET COUNT 219 K/MM3 (134-434); RBC 3.52 M/mm3 (3.60-5.2); RDW 15.4 % (11.6-15.6); WHITE BLOOD COUNT 10.5 K/mm3 (4.0-10.0)
[2019-02-21] MEDS ORDERED: DIPHTH,PERTUSS(ACELL),TET 0.5 ML DISP.SYRIN IM ONE (10:00)
[2019-02-21] MEDS: DEXTROSE 5%-LACTATED RINGERS 1,000 ML IV SCH (19:37)
[2019-02-21] MEDS: ELECTROLYTE-148 SOLN 1,000 ML IV SCH (19:37)
[2019-02-21] MEDS: OXYTOCIN 30 UNITS in 0.9% NS 30 UNIT/500 ML INFUS.BAG IVPB SCH (19:37)
[2019-02-21] MEDS: FENTANYL/BUPIVACAINE/NS/PF - PCEA - 50 ML DISP.SYRIN EP SCH (19:37)
[2019-02-21] MEDS: SENNOSIDES/DOCUSATE COMBO (SENNA PLUS) TABLET (UD) PO PRN (22:18)
[2019-02-22] MEDS: ACETAMINOPHEN 325 MG TABLET (FP) PO PRN ×4 (05:10→23:33)
[2019-02-22] MEDS: SIMETHICONE 80 MG TAB.CHEW (FP) PO PRN ×3 (05:10→23:33)
[2019-02-22] MEDS: IBUPROFEN 600 MG TABLET (FP) PO PRN ×4 (05:11→23:33)
--- NOTE | 2019-02-22 08:12 | PN ---
Post Progress Note - Subjective Subjective: Ambulating, tolerating PO, lochia decreased, voiding Post Day: 2 Type of Delivery: Primary C/S Vital Signs: Vital Signs Temperature 98.2 F 02/21/19 21:52 Pulse Rate 92 H 02/21/19 21:52 Respiratory Rate 20 02/21/19 21:52 Blood Pressure 96/65 02/21/19 21:52 O2 Sat by Pulse Oximetry (%) 95 02/20/19 08:15 Breast Exam: Yes: Other (deferred) Uterus: Yes: Fundus Firm Incision: Yes: Trevor intact Abdomen/GI: Yes: Abdomen soft Lochia, amount: Moderate Extremities: Yes: Calves non-tender Activity: Ambulating - Labs Labs: CBC WBC 10.5 K/mm3 (4.0-10.0) H 02/21/19 09:34 RBC 3.52 M/mm3 (3.60-5.2) L 02/21/19 09:34 Hgb 9.7 GM/dL (10.7-15.3) L 02/21/19 09:34 Hct 30.2 % (32.4-45.2) L 02/21/19 09:34 MCV 85.8 fl (80-96) 02/21/19 09:34 MCH 27.6 pg (25.7-33.7) 02/21/19 09:34 MCHC 32.2 g/dl (32.0-36.0) 02/21/19 09:34 RDW 15.4 % (11.6-15.6) 02/21/19 09:34 Plt Count 219 K/MM3 (134-434) 02/21/19 09:34 MPV 9.5 fl (7.5-11.1) 02/21/19 09:34 Absolute Neuts (auto) 7.4 K/mm3 (1.5-8.0) 02/21/19 09:34 Neutrophils % 70.3 % (42.8-82.8) 02/21/19 09:34 Lymphocytes % 22.1 % (8-40) 02/21/19 09:34 Monocytes % 5.7 % (3.8-10.2) 02/21/19 09:34 Eosinophils % 1.5 % (0-4.5) 02/21/19 09:34 Basophils % 0.4 % (0-2.0) 02/21/ 09:34 Nucleated RBC % 0 % (0-0) 02/21/ 09:34 Assessment/Plan POD # 2 in stable condition -Encouraged ambulation -Continue inpatient care -Anticipate D/C home on POD # 3
--- NOTE | 2019-02-22 08:42 | PN ---
Ante-Partal Exam - Subjective Subjective: Patient evaluated after Abx administration Vital Signs: Vital Signs Temperature 98.2 F 02/21/19 21:52 Pulse Rate 92 H 02/21/19 21:52 Respiratory Rate 20 02/21/19 21:52 Blood Pressure 96/65 02/21/19 21:52 O2 Sat by Pulse Oximetry (%) 95 02/20/19 08:15 Bleeding: No Headache: No Visual changes: No Right upper quadrant pain: No - Contractions Contractions: Yes Regularity: Regular Intensity: Mild/Mod Monitor Mode: External - Exam during Labor Heart Rate: 150 Variability: Moderate Category: I Monitor Accelerations: Present Monitor Decelerations: Variable Exam: Vaginal Dilatation (cm): 6 Effacement (%): 70 Amniotic Membrane Status: Ruptured Presentation: Vertex (OP) Station: -3 (IUPC in place) - Intrapartum Hemorrhage Risk Medium Risk Factors: Chorioamniomitis Risk Score: 1 Risk Level: Medium Risk - Assessment/Plan Assessment/Plan: 28 y/o G1 @ 39.6wks, unchanged cervix, FHT cat I with episodic variables, S/P PO cytotec and IUPC in place. Possibility of augmentation discussed and declined by patient. Patient desires section. -Proceed with CD due to failed induction -Pre-op Abx
[2019-02-22] MEDS: SENNOSIDES/DOCUSATE COMBO (SENNA PLUS) TABLET (UD) PO PRN (23:32)
--- NOTE | 2019-02-23 07:47 | DS ---
Physical Examination Vital Signs: Vital Signs Temperature 98.4 F 02/22/19 21:11 Pulse Rate 90 02/22/19 21:11 Respiratory Rate 20 02/22/19 21:11 Blood Pressure 100/64 02/22/19 21:11 O2 Sat by Pulse Oximetry (%) 95 02/20/19 08:15 Findings/Remarks: Ambulating, tolerating PO, lochia decreased, voiding, passing flatus. PP/post- op precautions discussed and all questions answered Constitutional: Yes: Calm HENT: Yes: Atraumatic, Normocephalic Neck: Yes: Supple Cardiovascular: Yes: Regular Rate and Rhythm Gastrointestinal: Yes: Normal Bowel Sounds, Soft ...Rectal Exam: Yes: Deferred Renal/: Yes: Other (decreased lochia) Musculoskeletal: Yes: WNL Extremities: Yes: WNL Edema: Yes Edema: LLE: Trace, RLE: Trace Integumentary: Yes: WNL Wound/Incision: Yes: Clean/Dry, Well Approximated, Sutures Intact Neurological: Yes: Alert, Oriented ...Motor Strength: WNL Psychiatric: Yes: Alert, Oriented Labs: CBC, BMP 02/21/19 09:34 02/19/19 22:10 Discharge Summary Problems reviewed: Yes Reason For Visit: LABOR ADMIT Current Active Problems Asthma affecting in third trimester (Acute) Grand multipara in labor (Acute) Labor established (Acute) Obesity (Acute) with 38 completed weeks gestation (Acute) Procedures: Principal: PLTCS Hospital Course: Uncomplicated PLTCS and post-op recovery Plan of Treatment: Return to regular diet and activity as tolerated. Follow up within a week and call MD with any questions or concerns Condition: Stable - Instructions Diet, Activity, Other Instructions: Regular Referrals: Pernell Vela MD [Staff Physician] - Disposition: HOME - Home Medications Comprehensive Discharge Medication List: Ambulatory Orders Vits96/Iron Fum/Folic [ Tablet] 1 tab PO DAILY 11/11/18 Albuterol Sulfate Inhaler - [Ventolin HFA Inhaler -] 1 puff IH PRN PRN 02/08/19
[2019-02-23] MEDS: IBUPROFEN 600 MG TABLET (FP) PO PRN (08:26)
[2019-02-23] MEDS: SIMETHICONE 80 MG TAB.CHEW (FP) PO PRN (08:26)
[2019-02-23] MEDS: ACETAMINOPHEN 325 MG TABLET (FP) PO PRN (08:26)
[2019-02-23 09:15] LABS: BASO % 0.6 % (0-2.0); EOS % 1.1 % (0-4.5); HEMATOCRIT 29.8 % (32.4-45.2); HEMOGLOBIN 9.4 GM/dL (10.7-15.3); LYMPH % 22.1 % (8-40); MCH 27.3 pg (25.7-33.7); MCHC 31.6 g/dl (32.0-36.0); MEAN CELL VOLUME 86.4 fl (80-96); MONO % 5.1 % (3.8-10.2); NEUT % 71.1 % (42.8-82.8); PLATELET COUNT 219 K/MM3 (134-434); RBC 3.45 M/mm3 (3.60-5.2); RDW 15.7 % (11.6-15.6); WHITE BLOOD COUNT 4.9 K/mm3 (4.0-10.0)
[2019-02-23 13:55] VITALS: BP 102/64; PULSE 95; TEMP 98.7
--- NOTE | 2019-02-23 17:03 | PATH ---
Surgical Pathology Report Patient Name: BRANDON STEVENS [facility]. Rec. #: [id number] /Age/Gender: 1985 (Age: 33) / F Account: [id number] Location: [facility] OBS/HOSPICE REGISTERED NURSE Taken: 02/20/2019 Received: 02/20/2019 Reported: 02/23/2019 Physicians: Pernell Vela M.D. Specimen(s) Received A: PLACENTA B: LEFT FALLOPIAN TUBE C: RIGHT FALLOPIAN TUBE Clinical History , 40.1 weeks, unstable lie, breech presentation Final Diagnosis A. PLACENTA, SECTION: 589 G THIRD TRIMESTER PLACENTA WITH TRIVASCULAR UMBILICAL CORD AND UNREMARKABLE PLACENTAL MEMBRANES. B. FALLOPIAN TUBE, LEFT, PARTIAL EXCISION: FULL LUMINAL PORTION OF UNREMARKABLE FALLOPIAN TUBE. C. FALLOPIAN TUBE, RIGHT, PARTIAL EXCISION: FULL LUMINAL PORTION OF UNREMARKABLE FALLOPIAN TUBE. Electronically Signed Maira Carpenter M.D. Gross Description A. The specimen is received fresh labeled placenta and is a 589 gram, 19 x 15 x 1.5 cm. placenta with attached membranes and umbilical cord. The attached membranes are pond, focally opaque and insert marginally. The umbilical cord measures 16 cm. in length and averages 1.5 cm. in diameter. The cord inserts eccentrically, 2 cm. to the nearest margin. No true knots or strictures are identified. Cut surface of the umbilical cord reveals 3 vessels. The surface is dennis-blue with minimal fibrin deposition and appropriate caliber vessels. The maternal surface is red-brown with focal defects. Sectioning reveals red-brown, spongy parenchyma. No lesions are identified. An[employer] sections are submitted in three cassettes as follows: 1- membrane rolls and umbilical cord; 2-3- full thickness sections of placenta. B. Received fresh labeled "left fallopian tube" is a tubular segment of soft tissue consistent with portion of fallopian tube measuring 1.5 cm in length. A 0.1 cm lumen is identified. The specimen is serially sectioned and entirely submitted in one cassette. C. Received fresh labeled "right fallopian tube" is a tubular segment of soft tissue consistent with portion of fallopian tube measuring 1.5 cm in length. A 0.1 cm lumen is identified. The specimen is serially sectioned and entirely submitted in one cassette. MLSZ/02/20/2019 san/02/20/2019
--- NOTE | 2019-03-17 10:40 | OP ---
DATE OF OPERATION: 02/20/2019 PREOPERATIVE DIAGNOSIS: 38 weeks, labor, breech. POSTOPERATIVE DIAGNOSIS: 38 weeks, labor, breech. PROCEDURE: Primary low segment transverse section and bilateral tubal ligation. SURGEON: Lilly Dorantes MD TAXI DANCER: CARA Warren ANESTHESIOLOGIST: Nya Moy DO ANESTHESIA: Epidural ESTIMATED BLOOD LOSS: 500 mL. OPERATION: Patient was taken to the operating room under adequate epidural anesthesia. Abdomen and perineum were prepped and draped. Pfannenstiel abdominal skin incision was made. Abdominal wall was cut layer by layer until the peritoneum was exposed and incised. Upon entering the abdominal cavity, lower uterine segment was identified, and uterovesical fold of peritoneum established. Bladder was pushed down. Then with the lower blade of the [place] retractor in the pelvis, a low transverse uterine incision was made. Amniotic sac was entered. Clear fluid. Baby was in single footling breech, which was delivered via breech without any difficulty. Placenta was delivered manually. Uterine cavity was cleaned of all remaining tissue. Uterine incision was closed in 2 layers, 1st layer with 0 Biosyn continuous suture, the 2nd layer with 0 Biosyn imbricating the 1st layer. Bladder flap was closed with 0 Biosyn continuous suture. Both tubes and ovaries were checked and were normal. No active bleeding was seen. She also had tubal ligation, which the right tube was grasped with [place] clamp. Right tube was doubly tied with 2-0 plain. Portion of tube was removed, and endosalpinx was cauterized. Same procedure repeated for opposite tube. No active bleeding was seen. All of the lap pad, sponge count, and instrument counts were correct. Peritoneum was closed with 0 Biosyn continuous suture. Muscles were brought together with interrupted sutures of 0 Biosyn. Fascia was closed with 0 Biosyn continuous suture, subcutaneous fat interrupted suture of 0 Biosyn, and the skin was closed with rei. LILLY DORANTES M.D. /[id number]
== END 2019-02-23 11:05 | disposition home or self-care (01) | DRG 540 ==
LOC: JDEL 16:33 → JLDR 21:10 → J3W 02-20 09:02
PROVIDERS: ADMIT Obstetrics & Gynecology; ATTEND Obstetrics & Gynecology
PROC: 10D00Z1 Extraction of Products of Conception, Low, Open Approach (ICD-10-PCS; principal; 2019-02-20)
PROC: 0UB70ZZ Excision of Bilateral Fallopian Tubes, Open Approach (ICD-10-PCS; 2019-02-20)
DX: O32.1XX0 Maternal care for breech presentation, not applicable or unspecified (principal); O99.213 Obesity complicating pregnancy, third trimester; Z3A.38 38 weeks gestation of pregnancy; J45.909 Unspecified asthma, uncomplicated; O26.893 Other specified pregnancy related conditions, third trimester; Z30.2 Encounter for sterilization; Z37.0 Single live birth
CPT/HCPCS: 36415; 36600; 59025; 80048; 82803; 85025; 85610; 85730; 86593; 86850; 86900; 86901; 88302-TC; 88307-TC; 90715